=== PATIENT | female | born 1930 | race Caucasian/White ===

== ENCOUNTER 2017-12-06 11:48 | Inpatient (IN) | payer OTHER ==
[~2017-12-06] VITALS: Ht 152.4 cm; Wt 68.7 kg
--- NOTE | 2017-12-06 12:12 | ED GENERAL ADULT ---
History of Present Illness General Chief Complaint: General Adult Stated Complaint: SENT BY DR JADE HENDRICKSONAL OF ANEMIA Source: patient, Dr. Hansen Exam Limitations: no limitations Vital Signs & Intake/Output Vital Signs & Intake/Output Vital Signs Date Time Temp Pulse Resp B/P B/P Pulse O2 O2 Flow FiO2 Mean Ox Delivery Rate 12/06 1645 92 Room Air 12/06 1542 98.0 75 18 141/77 98 Room Air Room Air 12/06 1155 97.9 71 15 133/74 95 Room Air Room Air Allergies Coded Allergies: No Known Allergies (12/06/17) Reconcile Medications Amlodipine Besylate 5 MG TABLET 1 TAB PO QPM HEART (Reported) Atenolol 25 MG TABLET 1 TAB PO DAILY HEART (Reported) Cholecalciferol (Vitamin D3) (Vitamin D-3) 2,000 UNIT CAPSULE 1 CAP PO DAILY VITAMIN SUPPORT (Reported) Losartan Potassium (Cozaar) 50 MG TABLET 1 TAB PO DAILY HEART (Reported) Lovastatin 40 MG TABLET 2 TAB PO DAILY CHOLESTEROL (Reported) with food Potassium Chloride 10 MEQ CAPSULE.ER 1 CAP PO DAILY SUPPLEMENT (Reported) Tramadol HCl 50 MG TABLET 1 TAB PO DAILY NEEDED PRN PAIN (Reported) Triage Note: PT SENT TO ED BY DR. HANSEN FOR WEAKNESS AND R/O ANEMIA. PT APPEARS PALE IN TRIAGE. DENIES BLACK OR BLOODY STOOLS. DENIES ANY PAIN. Triage Nurses Notes Reviewed? yes Onset: Gradual Duration: day(s): Timing: recent history HPI: 86 year old female presents to the Emergency Department for generalized weakness and weight loss. She was sent in by Dr. Hansen for progressive weight loss. He says that she's had some deterioration in her mental status. She is noncompliant and has mild dementia. Past History Travel History Traveled to [place] past 21 day No Medical History Any Pertinent Medical History? 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 No Review of Systems Review of Systems Constitutional: Denies: fever. EENTM: Reports: no symptoms. Respiratory: Denies: short of breath. Cardiovascular: Denies: chest pain. GI: Denies: abdominal pain. Genitourinary: Reports: no symptoms. Musculoskeletal: Reports: no symptoms. Skin: Denies: rash. Neurological/Psychological: Reports: see HPI. Hematologic/Endocrine: Reports: no symptoms. Immunologic/Allergic: Reports: no symptoms. Physical Exam Physical Exam General Appearance: alert, awake, anxious, mild distress Head: atraumatic, normal appearance Eyes: Bilateral: normal appearance, PERRL, EOMI. Ears, Nose, Throat: normal pharynx, normal ENT inspection Neck: normal inspection, supple, full range of motion Respiratory: normal breath sounds, chest non-tender, no respiratory distress Cardiovascular: regular rate/rhythm Peripheral Pulses: 4+ radial (R), 4+ radial (L) Gastrointestinal: soft, non-tender Back: normal range of motion Extremities: pedal edema Neurologic/Psych: no motor/sensory deficits, awake, alert Skin: intact, normal color, warm/dry Core Measures ACS in differential dx? No CVA/TIA Diagnosis: No Sepsis Present: No Sepsis Focused Exam Completed? No Progress Differential Diagnoses I considered the following diagnoses in my evaluation of the patient: [ Malignancy, electrolyte derangement, dehydration, anemia, renal failure] Plan of Care: Orders Procedure Date/time Status CBC WITHOUT DIFFERENTIAL 12/07 0600 Active BASIC ELECTROLYTES PLUS BUN&CR 12/07 0600 Active Heart Healthy Diet 12/06 D Active Weight 12/06 1813 Active Vital Signs 12/06 1813 Active Teach/Educate 12/06 181 Active Pain Treatment and Response 12/06 1813 Active Nutritional Intake, Monitor 12/06 1813 Active Isolation 12/06 1813 Active Intake & Output 12/06 1813 Active Patient Care Conference 12/06 1813 Active Activity/Ambulation 12/06 1813 Active URINALYSIS 12/06 1546 Active Intake & Output 12/06 1542 Active Pathway - chart 12/06 1541 Active Vital Signs 12/06 1541 Complete Patient Data 12/06 1421 Active ED Holding Orders 12/06 1414 Active Admit to inpatient 12/06 1414 Active Vital Signs 12/06 1414 Active Code Status 12/06 1414 Active THYROID STIMULATING HORMONE 12/06 1224 Active TOTAL TRIODOTHYROXINE 12/06 1224 Active THYROXINE 12/06 1224 Active GLYCOSYLATED HGB 12/06 1224 Active TROPONIN LEVEL 12/06 1158 Active PARTIAL THROMBOPLASTIN TIME 12/06 1158 Complete PROTHROMBIN TIME 12/06 1158 Complete COMPREHENSIVE METABOLIC PANEL 12/06 1158 Active CBC WITHOUT DIFFERENTIAL 12/06 1158 Complete EKG 12/06 1158 Active TYPE & SCREEN (NOT X-MATCH) 12/06 1158 Complete House Staff 12/06 UNK Active Lab Add-on Test 12/06 UNK Active MISSING MEDICATION FORM 12/06 UNK Active Current Medications Sig/Zoie Start time Last Medication Dose Stop Time Status Admin Atenolol 25 MG DAILY 12/07 09 AC (Tenormin) Cholecalciferol 2,000 IU DAILY 12/07 09 AC (Vitamin D) Losartan Potassium 50 MG DAILY 12/07 09 AC (Cozaar) Potassium Chloride 10 MEQ DAILY 12/07 09 AC (K-Dur) Heparin Sodium 5,000 UNIT Q8 12/06 2200 AC (Porcine) Amlodipine Besylate 5 MG QPM 12/06 2100 AC (Norvasc) Atorvastatin Calcium 10 MG 1700 12/06 1700 AC 12/06 (Lipitor) 1833 Acetaminophen 650 MG Q6P PRN 12/06 1545 AC (Tylenol) Sodium Chloride 1,000 ML ONCE ONE 12/06 1415 AC 12/06 (Normal Saline 0.9%) 12/064 1658 Laboratory Tests 12/06/17 1224: Anion Gap 23 H, Estimated GFR 22 L, BUN/Creatinine Ratio 15.2, Glucose 89, Hemoglobin A1c Pending, Calcium 9.7, Total Bilirubin 0.7, AST 17, ALT 22, Alkaline Phosphatase 92, Troponin I < 0.01, Total Protein 6.7, Albumin 3.5, Globulin 3.2, Albumin/Globulin Ratio 1.1, TSH 2.690, Thyroxine (T4) 8.0, Total T3 0.64 L, PT 12.2, INR 1.12, APTT 30, CBC w Diff NO MAN DIFF REQ, RBC 4.14 L, MCV 91.5, MCH 30.3, MCHC 33.1, RDW 13.0, MPV 9.3, Gran % 79.5 H, Lymphocytes % 12.6 L, Monocytes % 6.8, Eosinophils % 0.6, Basophils % 0.5, Absolute Granulocytes 6.9 H, Absolute Lymphocytes 1.1 L, Absolute Monocytes 0.6, Absolute Eosinophils 0.1, Absolute Basophils 0 Initial ED EKG: normal sinus rhythm, no ST T wave changes Prior EKG: unchanged Departure Departure Disposition: STILL A PATIENT Condition: Stable Clinical Impression Primary Impression: EPI (acute kidney injury) Referrals: Jade MOORE,Raul Chung (PCP/Family) Departure Forms: Customer Survey General Discharge Information Admission Note Spoke With: Shayla MOORE,Piotr Holder Documentation of Exam: Documentation of any treatments & extenuating circumstances including Concerns Regarding Discharge (functional status, medication knowledge or non-compliance, living conditions, etc.) that warrant an admission rather than observation: [The patient needs admission for acute kidney injury, she'll need IV fluids, follow up the CAT scan, consider nephrology consultation] Critical Care Note Critical Care Note Critical Care Time: non-applicable
[2017-12-06 12:39] LABS: ABSOLUTE BASOPHIL COUNT 0 /CUMM (0.0-0.2); ABSOLUTE EOSINOPHIL COUNT 0.1 /CUMM (0.0-0.7); ABSOLUTE GRANULOCYTE CT 6.9 /CUMM (1.4-6.5); ABSOLUTE LYMPH COUNT 1.1 /CUMM (1.2-3.4); ABSOLUTE MONOCYTE COUNT 0.6 /CUMM (0.10-0.60); BASOPHIL % 0.5 % (0.0-2.0); EOSINOPHIL % 0.6 % (0-5); GRANULOCYTE % 79.5 % (42.2-75.2); HEMATOCRIT 37.9 % (37-47); MEAN CORPUSCULAR HGB 30.3 PG (27.0-31.0); MEAN CORPUSCULAR HGB CONC 33.1 G/DL (33.0-37.0); MEAN CORPUSCULAR VOLUME 91.5 FL (81.0-99.0); MEAN PLATELET VOLUME 9.3 FL (7.4-10.4); PLATELET COUNT 381 /CUMM (130-400); RED BLOOD CELL CT 4.14 /CUMM (4.20-5.40); WHITE BLOOD CELL COUNT 8.7 /CUMM (4.8-10.8)
[2017-12-06] MEDS ORDERED: LOVASTATIN40 M1 PO (12:46)
[2017-12-06] MEDS ORDERED: TRAMADOL HCL50 M1 PO (12:47)
[2017-12-06] MEDS ORDERED: ATENOLOL25 M1 PO (12:47)
[2017-12-06] MEDS ORDERED: VITAMIN D-32000 UNI1 PO (12:48)
[2017-12-06] MEDS ORDERED: COZAAR50 M1 PO (12:49)
[2017-12-06] MEDS ORDERED: POTASSIUM CHLO10 ME3 PO (12:49)
[2017-12-06] MEDS ORDERED: AMLODIPINE BESYL5 M1 PO (12:50)
[2017-12-06 13:04] LABS: PT 12.2 SEC (9.4-12.5); PTT 30 SEC (25-37)
--- NOTE | 2017-12-06 14:25 | History & Physical ---
Naun Kaba 12/06/17 1424: General Information and HPI MD Statement: I have seen and personally examined NAIF BOWERS and documented this H&P. The patient is a 86 year old F who presented with a patient stated chief complaint of [sent by PCP for weight loss]. Source of Information: patient, pcp via phone Exam Limitations: no limitations History of Present Illness: Patient is an 86-year-old female with past medical history of hypertension and hyperlipidemia who presents to the emergency department at the request of her primary care provider. She was referred to the ED for stated weight loss of 21 pounds over the past 3 months. The patient herself has no complaints and no symptoms. Allergies/Medications Allergies: Coded Allergies: No Known Allergies (12/06/17) Home Med list Amlodipine Besylate 5 MG TABLET 1 TAB PO QPM HEART (Reported) Atenolol 25 MG TABLET 1 TAB PO DAILY HEART (Reported) Cholecalciferol (Vitamin D3) (Vitamin D-3) 2,000 UNIT CAPSULE 1 CAP PO DAILY VITAMIN SUPPORT (Reported) Losartan Potassium (Cozaar) 50 MG TABLET 1 TAB PO DAILY HEART (Reported) Lovastatin 40 MG TABLET 2 TAB PO DAILY CHOLESTEROL (Reported) with food Potassium Chloride 10 MEQ CAPSULE.ER 1 CAP PO DAILY SUPPLEMENT (Reported) Tramadol HCl 50 MG TABLET 1 TAB PO DAILY NEEDED PRN PAIN (Reported) Compliance With Home Meds: UNKNOWN (presumed good) Past History Travel History Traveled to [place] past 21 day No Medical History Neurological: NONE EENT: NONE Cardiovascular: hypertension, hyperlipidemia Respiratory: NONE Gastrointestinal: NONE Hepatic: NONE Renal: NONE Musculoskeletal: NONE Psychiatric: NONE Endocrine: NONE Blood Disorders: NONE Cancer(s): NONE 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 Ambulation: independent IADLs Independent: shopping, housework, finances, food prep, telephone, transportation. Needs Assist: medication admin. 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 EENTM: Reports: no symptoms. Cardiovascular: Reports: no symptoms. Respiratory: Reports: no symptoms. GI: Reports: no symptoms. Genitourinary: Reports: no symptoms. Musculoskeletal: Reports: no symptoms. Skin: Reports: no symptoms. Neurological/Psychological: Reports: no symptoms. Hematologic/Endocrine: Reports: no symptoms. Exam & Diagnostic Data Last 24 Hrs of Vital Signs/I&O Vital Signs Date Time Temp Pulse Resp B/P B/P Pulse O2 O2 Flow FiO2 Mean Ox Delivery Rate 12/06 2321 98.3 64 19 150/60 95 12/06 2137 62 18 128/56 12/06 2135 62 18 128/56 12/06 1645 97.7 68 20 124/64 92 Room Air 12/06 1645 92 Room Air 12/06 1542 98.0 75 18 141/77 98 Room Air Room Air 12/06 1155 97.9 71 15 133/74 95 Room Air Room Air Intake & Output 12/07 0800 12/07 0000 12/06 1600 Intake Total 990 1000 Output Total 400 Balance 590 1000 Intake, IV 450 1000 Intake, Oral 540 Output, Urine 400 Patient 146 lb 155 lb Weight Weight Bed scale Estimated Measurement Method Physical Exam General Appearance Alert, Oriented X3, Cooperative, No Acute Distress Skin No Rashes, No Breakdown Skin Temp/Moisture Exam: Warm/Dry HEENT Atraumatic, PERRLA, EOMI, Mucous Membr. moist/pink Neck Supple, No JVD, No thryomegaly Lymphatic Cervical nl Cardiovascular Regular Rate, Normal S1, Normal S2, No Murmurs Lungs decreased air movement.no wheezes or crackles Abdomen Soft, No Tenderness, No Hepatospenomegaly Neurological Normal Speech, Strength at 5/5 X4 Ext, Normal Tone, Sensation Intact Extremities No Clubbing, No Cyanosis, No Edema, toenails in need of podiatry consult Vascular Normal Pulses, Pulses Symmetrical Last 24 Hrs of Labs/Bret: Laboratory Tests 12/06/172211: Urine Color YEL, Urine Clarity CLEAR, Urine pH 6.0, Ur Specific [place] 1.020, Urine Protein TRACE H, Urine Ketones 15 H, Urine Nitrite POS H, Urine Bilirubin NEG, Urine Urobilinogen 0.2, Ur Leukocyte Esterase SMALL H, Ur Microscopic SEDIMENT EXAMINED, Urine RBC 1-3, Urine WBC 10-15 H, Ur Epithelial Cells MANY H, Urine Bacteria PACKD H, Urine Hemoglobin TRACE-INTACT, Urine Glucose NEG 12/06/17 1224: Anion Gap 23 H, Estimated GFR 22 L, BUN/Creatinine Ratio 15.2, Glucose 89, Hemoglobin A1c Pending, Calcium 9.7, Total Bilirubin 0.7, AST 17, ALT 22, Alkaline Phosphatase 92, Troponin I < 0.01, Total Protein 6.7, Albumin 3.5, Globulin 3.2, Albumin/Globulin Ratio 1.1, TSH 2.690, Thyroxine (T4) 8.0, Total T3 0.64 L, PT 12.2, INR 1.12, APTT 30, CBC w Diff NO MAN DIFF REQ, RBC 4.14 L, MCV 91.5, MCH 30.3, MCHC 33.1, RDW 13.0, MPV 9.3, Gran % 79.5 H, Lymphocytes % 12.6 L, Monocytes % 6.8, Eosinophils % 0.6, Basophils % 0.5, Absolute Granulocytes 6.9 H, Absolute Lymphocytes 1.1 L, Absolute Monocytes 0.6, Absolute Eosinophils 0.1, Absolute Basophils 0 Diagnostic Data EKG Results Sinus rhythm, probably L atrial and ventricular abbnormalities Other Results SERVICE DATE: 12/06/17 EXAM TYPE: CAT - CT ABD & PELVIS W/O IV CONTRAS; CT CHEST WO IV CONTRAST IMPRESSION: Irregular opacity lateral segment right middle lobe subjacent to the right mastectomy is nonspecific but compatible with post radiation scarring. Correlate clinically. Pneumonia difficult to exclude without suitable comparison. Amorphous groundglass disease in the subpleural left upper lobe is consistent with a focal pneumonia. Recommend follow-up chest CT in 6-8 weeks after medical therapy to confirm resolution. No hydronephrosis. Cholelithiasis without evidence of cholecystitis. Moderate hiatal hernia. SERVICE DATE: 12/06/17 EXAM TYPE: CAT - CT HEAD WO IV CONTRAST IMPRESSION: No acute intracranial hemorrhage or territorial infarction. Moderate to severe diffuse parenchymal volume loss. Assessment/Plan Assessment: 86-year-old female with past medical history of HTN, HLD, status post left mastectomy remotely however unknown of surgical type/chemo/radiation. Patient was sent in by Dr. Nuno for eval of anemia and weight loss. Patient had no specific complaints and states she was in her usual state of health has been compliant with all her meds and on a regular [address] Borden. At baseline she does not have any exercise intolerance and ambulates freely she also only sees Dr. Borden and no other physicians. Per Dr. Borden patient loss 21 pounds in 3 months. 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 Weight loss 2. EPI (acute kidney injury) Core Measures/Misc (02/03) Acute Coronary Syndrome ACS Diagnosis: No Congestive Heart Failure Congestive Heart Failure Diagnosis No Cerebrovascular Accident CVA/TIA Diagnosis: No VTE (View Protocol) VTE Risk Factors Age>40 No Mechanical VTE Prophylaxis d/t N/A MechProphylax Ordered No VTE Pharm Prophylaxis d/t NA PharmProphylax ordered Sepsis (View protocol) Sepsis Present: No If YES complete Sepsis Event Note If YES complete Sepsis Event Note Nasrin Mcguire 12/06/17 1511: Core Measures/Misc (02/03) Sepsis (View protocol) If YES complete Sepsis Event Note If YES complete Sepsis Event Note Attending MD Review Statement Attending Statement Attending MD Statement: examined this patient, discuss w/resident/PA/YOUTH PROGRAM DIRECTOR, agreed w/resident/PA/YOUTH PROGRAM DIRECTOR, discussed with family, reviewed EMR data (avail), discussed with nursing, discussed with case mgmt, reviewed images, amended to note Attending Assessment/Plan: 86 o/f with PMH as above comes with generlaised weakness and weight loss. Pateint PCP is Dr Faith. Patient underwent [place] CT chest/abd/pelvis along with CT head. Imaging suggestive of FARHAN nodule amorphous ground glass appaearance. Pateint creatinine is found to be elevated. Patient is being admitted for EPI on CKD with metabolic acidosis and high anion gap from dehydration needing IVF. Check lactic acid levels. Patient with weight loss and abnomral CT chest with FARHAN nodule will benefit from pulmonary consult. Monitor creatinine tomorrow. RISS and titrate insulin as needed. Resume home meds. GI/DVT prophylaxis full code. Plan of care discussed with patient bedside in ER. Suma Quiñones 12/06/17 1547: Core Measures/Misc (02/03) Sepsis (View protocol) If YES complete Sepsis Event Note If YES complete Sepsis Event Note Resident Review Statement Resident Statement: examined this patient, discussed with music intern, agreed with music intern, discussed with family, reviewed EMR data (avail), discussed with nursing , discussed with case mgmt, reviewed images, amended to note Other Findings: Ms. Bowers is an 86yo F w/ PMH of HTN, HLD, s/p left masectomy remotely likely 2007 however unknown of surgical type/chemo/radiation, sent in by Dr. Faith for eval of anemia and weight loss. Patient had no specific complaint and stated she was in her usual state of health and has been compliant with all her meds and on a regular [id number] visit to Dr. Faith. At baseline she did not have any exercise intolerance and ambulates freely. She also only sees Dr. Faith. Per Dr. Faith, patient lost 21lbs in 3 months. During our clinical interaction, patient denied recent travel/sick contacts, fever/lightheadedness/diaphoresis/night sweat/weight change/cough/SOB/Chest Pain /Palpitation/Abdominal pain/bowel movement or urinary abnormality, or other skin /musculoskeletal/neurological/mood disorders, or dietary/appetite change. -Smoking: former smoker quitted >20 yrs -Alcohol: rare -Rec Drugs: denied On admission, Vitals: Stable afebrile, BP 150/74, 95% RA Physical exam -Gen.: AO x3, cooperative, no distress, -HEENT: NCAT, PERRL, EOMI, anicteric sclera, moist mucous membranes -Neck: Supple, no JVD, trachea midline, mild accessory respiratory muscle use -Cardio: Normal S1/S2 without significant murmurs/gallops/rubs -Chest: s/p left masectomy without any palpable lymph nodes in bilateral armpits -Pulmonary: grossly normal air movement w/ clear auscultation -Abdomen: Soft, nontender, nondistended, bowel sounds intact, hiatal hernia palpable -Neuro: Awake and alert, cranial nerves II through XII grossly intact -Extremity: Normal pulses/capillary refill, no cyanosis/clubbing/edema -CBC: Unremarkable -BMP: Elevated creatinine 2.1, no previous baseline in our system -Head/Chest/Ab CT No acute intracranial hemorrhage or territorial infarction. Moderate to severe diffuse parenchymal volume loss. Irregular opacity lateral segment right middle lobe subjacent to the right mastectomy is nonspecific but compatible with post radiation scarring. Correlate clinically. Pneumonia difficult to exclude without suitable comparison. Amorphous groundglass disease in the subpleural left upper lobe is consistent with a focal pneumonia. Recommend follow-up chest CT in 6-8 weeks after medical therapy to confirm resolution. No hydronephrosis. Cholelithiasis without evidence of cholecystitis. Moderate hiatal hernia. -EKG: NSR w/o significant ST-T abnormalities. 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 - Vitals per protocol, monitor I&O per protocol. - Continue IVF bolus x 1 + 150cc/hr - Continue home meds - would monitor off Abx at this point due to no signs of infection (no fever/ chills/WBC/toxic symptoms/cough/congestion). - obtain records from Dr. Faith' office if any. - Pending pulm consult for abnormal findings on Chest CT. - Pending blood culture. - Pending urinalysis. - Pain per pathway. DVT prophylaxis heparin SC + ALPS Heart Healthy Diet IV Access: Peripheral IV Full Code
--- NOTE | 2017-12-06 14:36 | CT SCAN REPORT ---
EXAMINATION: CT HEAD WITHOUT CONTRAST CLINICAL INFORMATION: Altered mental status. COMPARISON: None TECHNIQUE: Contiguous axial imaging was performed from the skull base to vertex without intravenous administration of contrast. DLP: 592.4 mGy-cm FINDINGS: There is no evidence of acute intracranial hemorrhage or territorial infarction. No abnormal mass effect or midline shift is seen. Cordon to white matter differentiation is well preserved. No extra-axial fluid collections are identified. There is moderate to severe diffuse parenchymal volume loss. The ventricles are normal in size. There is no abnormal attenuation within the brain parenchyma. The osseous structures and soft tissues are normal. The mastoid air cells and visualized portions of the paranasal sinuses are well aerated. IMPRESSION: No acute intracranial hemorrhage or territorial infarction. Moderate to severe diffuse parenchymal volume loss.
--- NOTE | 2017-12-06 14:48 | CT SCAN REPORT ---
EXAMINATION: CT CHEST, ABDOMEN AND PELVIS WITHOUT CONTRAST CLINICAL INFORMATION: Altered mental status, weight loss, acute kidney injury. COMPARISON: Chest x-ray 08/30/2011. TECHNIQUE: Multidetector volumetric CT imaging of the chest, abdomen, and pelvis was performed without contrast. Axial MIP volume rendering provided. Sagittal and coronal reformatted images were obtained. DLP: 336 mGy-cm. FINDINGS: CHEST: LUNGS: Triangular opacity in the lateral segment of the right middle lobe subjacent to the right mastectomy nonspecific but compatible with post radiation scarring. Similar, smaller opacity is seen in the right lateral costophrenic sulcus. Amorphous groundglass disease in the subpleural left upper lobe may represent focal pneumonia. Follow-up recommended. MEDIASTINUM: The mediastinum is unremarkable. PLEURA: Trace left pleural effusion. AXILLA: Right mastectomy with breast prosthesis. No axillary adenopathy. ABDOMEN AND PELVIS: LIVER, GALLBLADDER, AND BILIARY TREE: The liver is normal in size, shape, and attenuation. No focal hepatic lesion or biliary ductal dilatation is present. Large lamellated gallstone measuring 2.9 cm. No evidence of cholecystitis. PANCREAS: Fatty atrophy. No ductal dilatation SPLEEN: Unremarkable. ADRENAL GLANDS: Unremarkable. KIDNEYS AND URETERS: 2.8 cm simple density cyst lower pole right kidney. Malrotated left kidney. 1.2 cm simple density cyst lower pole left kidney. No hydroureteronephrosis. No nephrolithiasis. BLADDER: Unremarkable. GASTROINTESTINAL TRACT: Moderate-sized hiatal hernia. Small bowel normal in caliber. A few scattered colonic diverticula. No evidence of diverticulitis or bowel obstruction. ABDOMINAL WALL: Small fat-containing indirect right inguinal hernia. Small fat-containing, probable direct left inguinal hernia. LYMPH NODES: No measurable adenopathy. VASCULAR: Tortuous and calcified abdominal aorta. No aneurysm. PELVIC VISCERA: The uterus is been removed. No pelvic mass. OSSEOUS STRUCTURES: Scoliosis with grade 2 anterolisthesis of L4 on L5 with severe associated degenerative changes. Severe degenerative changes L1-L2 and L5-S1. IMPRESSION: Irregular opacity lateral segment right middle lobe subjacent to the right mastectomy is nonspecific but compatible with post radiation scarring. Correlate clinically. Pneumonia difficult to exclude without suitable comparison. Amorphous groundglass disease in the subpleural left upper lobe is consistent with a focal pneumonia. Recommend follow-up chest CT in 6-8 weeks after medical therapy to confirm resolution. No hydronephrosis. Cholelithiasis without evidence of cholecystitis. Moderate hiatal hernia.
[2017-12-06 16:45] VITALS: BP 124/64
[2017-12-06 21:35] VITALS: BP 128/56
[2017-12-06 23:21] VITALS: BP 150/60
[2017-12-07 06:29] VITALS: BP 132/58
[2017-12-07 08:35] LABS: ABSOLUTE BASOPHIL COUNT 0 /CUMM (0.0-0.2); ABSOLUTE EOSINOPHIL COUNT 0.1 /CUMM (0.0-0.7); ABSOLUTE GRANULOCYTE CT 4.8 /CUMM (1.4-6.5); ABSOLUTE LYMPH COUNT 1.7 /CUMM (1.2-3.4); ABSOLUTE MONOCYTE COUNT 0.4 /CUMM (0.10-0.60); BASOPHIL % 0.6 % (0.0-2.0); EOSINOPHIL % 1.7 % (0-5); GRANULOCYTE % 67.2 % (42.2-75.2); MEAN CORPUSCULAR HGB 30.1 PG (27.0-31.0); MEAN CORPUSCULAR HGB CONC 33.3 G/DL (33.0-37.0); MEAN CORPUSCULAR VOLUME 90.4 FL (81.0-99.0); MEAN PLATELET VOLUME 11.5 FL (7.4-10.4); PLATELET COUNT 315 /CUMM (130-400); RBC DISTRIBUTION WIDTH 12.7 % (11.5-14.5); WHITE BLOOD CELL COUNT 7.1 /CUMM (4.8-10.8)
[2017-12-07 09:11] LABS: HEMATOCRIT 31.7 % (37-47)
--- NOTE | 2017-12-07 09:43 | PN- Housestaff ---
See Addendum Subjective Follow-up For: By PCP for weight loss Complaints: no complaints Subjective: She seen and examined at the bedside. Patient claims she was able to sleep well last night, but still concerned about being able to leave here as soon as possible. When told that we spoke with her son she did not seem upset. Verbalized understanding of the plan to correct her kidney function. No other complete Review of Systems Constitutional: Reports: no symptoms. Objective Last 24 Hrs of Vital Signs/I&O Vital Signs Date Time Temp Pulse Resp B/P B/P Pulse O2 O2 Flow FiO2 Mean Ox Delivery Rate 12/07 0808 60 132/58 12/07 0808 60 132/58 12/07 0629 98.3 60 20 132/58 92 12/06 2321 98.3 64 19 150/60 95 12/06 2137 62 18 128/56 12/06 2135 62 18 128/56 12/06 1645 97.7 68 20 124/64 92 Room Air 12/06 1645 92 Room Air 12/06 1542 98.0 75 18 141/77 98 Room Air Room Air 12/06 1155 97.9 71 15 133/74 95 Room Air Room Air Intake & Output 12/07 1600 12/07 0800 12/07 0000 Intake Total 120 990 Output Total 250 400 Balance -250 120 590 Intake, IV 450 Intake, Oral 120 540 Number 1 Bowel Movements Output, Urine 250 400 Patient 152 lb 146 lb Weight Weight Bed scale Bed scale Measurement Method Physical Exam General Appearance: Alert, Oriented X3, Cooperative, No Acute Distress Skin: No Rashes, No Breakdown Skin Temp/Moisture Exam: Warm/Dry HEENT: Atraumatic, PERRLA, EOMI, Mucous Membr. moist/pink Neck: Supple, No JVD, No thryomegaly Lymphatic: Axillary nl, Cervical nl Cardiovascular: Regular Rate, Normal S1, Normal S2, No Murmurs Lungs: Clear to Auscultation, Normal Air Movement Abdomen: Normal Bowel Sounds, Soft, No Tenderness, No Hepatospenomegaly Neurological: Normal Speech, Strength at 5/5 X4 Ext, Normal Tone, Sensation Intact Extremities: No Clubbing, No Cyanosis, No Edema Vascular: Normal Pulses, Pulses Symmetrical Current Medications: Current Medications Sig/Zoie Start time Last Medication Dose Route Stop Time Status Admin Acetaminophen 650 MG Q6P PRN 12/06 1545 AC PO Amlodipine Besylate 5 MG QPM 12/06 2100 AC 12/06 PO 2137 Atenolol 25 MG DAILY 12/07 0900 AC 12/07 PO 0808 Atorvastatin Calcium 10 MG 1700 12/06 1700 AC 12/06 PO 1833 Cholecalciferol 2,000 IU DAILY 12/07 0900 AC 12/07 PO 0808 Heparin Sodium 5,000 UNIT Q8 12/06 2200 AC 12/07 (Porcine) SC 0526 Losartan Potassium 50 MG DAILY 12/07 0900 AC 12/07 PO 0808 Nystatin 1 DONITA BID 12/06 2100 AC 12/07 TOP 0808 Potassium Chloride 10 MEQ DAILY 12/07 0900 AC 12/07 PO 0807 Sodium Chloride 1,000 ML ONCE ONE 12/06 1415 DC 12/06 IV 12/06 2054 1658 Sodium Chloride 1,000 ML BOLUS ONE 12/06 1400 DC 12/06 IV 12/06 1559 1424 Last 24 Hrs of Lab/Bret Results Last 24 Hrs of Labs/Mics: Laboratory Tests 12/07/17 0640: Anion Gap 18 H, Estimated GFR 33 L, BUN/Creatinine Ratio 20.0, CBC w Diff NO MAN DIFF REQ, RBC 3.50 L, MCV 90.4, MCH 30.1, MCHC 33.3, RDW 12.7, MPV 11.5 H, Gran % 67.2, Lymphocytes % 24.2, Monocytes % 6.3, Eosinophils % 1.7, Basophils % 0.6, Absolute Granulocytes 4.8, Absolute Lymphocytes 1.7, Absolute Monocytes 0.4 , Absolute Eosinophils 0.1, Absolute Basophils 0 12/06/17 2212: Urine Color YEL, Urine Clarity CLEAR, Urine pH 6.0, Ur Specific [place] 1.020, Urine Protein TRACE H, Urine Ketones 15 H, Urine Nitrite POS H, Urine Bilirubin NEG, Urine Urobilinogen 0.2, Ur Leukocyte Esterase SMALL H, Ur Microscopic SEDIMENT EXAMINED, Urine RBC 1-3, Urine WBC 10-15 H, Ur Epithelial Cells MANY H, Urine Bacteria PACKD H, Urine Hemoglobin TRACE-INTACT, Urine Glucose NEG 12/06/17 1224: Anion Gap 23 H, Estimated GFR 22 L, BUN/Creatinine Ratio 15.2, Glucose 89, Hemoglobin A1c Pending, Calcium 9.7, Total Bilirubin 0.7, AST 17, ALT 22, Alkaline Phosphatase 92, Troponin I < 0.01, Total Protein 6.7, Albumin 3.5, Globulin 3.2, Albumin/Globulin Ratio 1.1, TSH 2.690, Thyroxine (T4) 8.0, Total T3 0.64 L, PT 12.2, INR 1.12, APTT 30, CBC w Diff NO MAN DIFF REQ, RBC 4.14 L, MCV 91.5, MCH 30.3, MCHC 33.1, RDW 13.0, MPV 9.3, Gran % 79.5 H, Lymphocytes % 12.6 L, Monocytes % 6.8, Eosinophils % 0.6, Basophils % 0.5, Absolute Granulocytes 6.9 H, Absolute Lymphocytes 1.1 L, Absolute Monocytes 0.6, Absolute Eosinophils 0.1, Absolute Basophils 0 Orders EKG Findings: This rhythm, probably left atrial and ventricular abnormality Radiology Findings: SERVICE DATE: 12/06/17 EXAM TYPE: CAT - CT ABD & PELVIS W/O IV CONTRAS; CT CHEST WO IV CONTRAST IMPRESSION: Irregular opacity lateral segment right middle lobe subjacent to the right mastectomy is nonspecific but compatible with post radiation scarring. Correlate clinically. Pneumonia difficult to exclude without suitable comparison. Amorphous groundglass disease in the subpleural left upper lobe is consistent with a focal pneumonia. Recommend follow-up chest CT in 6-8 weeks after medical therapy to confirm resolution. No hydronephrosis. Cholelithiasis without evidence of cholecystitis. Moderate hiatal hernia. SERVICE DATE: 12/06/17 EXAM TYPE: CAT - CT HEAD WO IV CONTRAST IMPRESSION: No acute intracranial hemorrhage or territorial infarction. Moderate to severe diffuse parenchymal volume loss. Assessment/Plan Assessment: 86-year-old female with past medical history of HTN, HLD, status post left mastectomy remotely however unknown of surgical type/chemo/radiation. Patient was sent in by Dr. Nuno for eval of anemia and weight loss. Patient had no specific complaints and states she was in her usual state of health has been compliant with all her meds and on a regular [address] Borden. At baseline she does not have any exercise intolerance and ambulates freely she also only sees Dr. Borden and no other physicians. Per Dr. Borden patient loss 21 pounds in 3 months. 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 DVT prophylaxis: Subcu heparin + ALPS Heart healthy diet Patient is full code Problem List: 1. Weight loss 2. EPI (acute kidney injury) Pain Ratin Pain Location: none Pain Goal: Remain pain free Pain Plan: none Tomorrow's Labs & Rationales: none planned at this time
--- NOTE | 2017-12-07 09:46 | Patient Discharge Instructions ---
Discharge Instructions General Discharge Information Special Instructions: - Please follow up with your lung specialist Dr. Howell for further evaluation of your new chest x-ray findings. - Please follow up with your primary care physician within 1-2 weeks of discharge. Inform your primary care physician of this admission to [facility]. - Continue your current medications per discharge instructions. - Please watch for these problems: Fever, Chills, Nausea, Vomiting, Shortness of Breath, Productive Cough, Chest Pain/Discomfort, Abdominal Pain, Active Bleeding or Bloody urine/stool. Diet Continue normal diet: Yes Activity Full Activity/No Limits: Yes Acute Coronary Syndrome Inclusion Criteria At DC or during hospital stay patient has or had the following: ACS DIAGNOSIS No Discharge Core Measures Meds if any: Prescribed or Continued at Discharge Meds if any: NOT Prescribed or Continued at Discharge Congestive Heart Failure Inclusion Criteria At DC or during hospital stay patient has or had the following: CHF DIAGNOSIS No Discharge Core Measures Meds if any: Prescribed or Continued at Discharge Meds if any: NOT Prescribed or Continued at Discharge Cerebrovascular accident Inclusion Criteria At DC or during hospital stay patient has or had the following: CVA/TIA Diagnosis No Discharge Core Measures Meds if any: Prescribed or Continued at Discharge Meds if any: NOT Prescribed or Continued at Discharge Venous thromboembolism Inclusion Criteria VTE Diagnosis No VTE Type NONE VTE Confirmed by (Test) NONE Discharge Core Measures - Per Current guidelines, there needs to be overlap - treatment for the first 5 days of Warfarin therapy. - If discharged on Warfarin prior to 5 days of - overlap therapy, the patient will need to be - assessed for post discharge needs including - *Post discharge parental anticoagulation - *Warfarin and/or parental anticoagulation education - *Follow up date to check INR post discharge At least 5 days overlap therapy as Inpatient No Meds if any: Prescribed or Continued at Discharge Note: Overlap Therapy is Warfarin and Anticoagulant Meds if any: NOT Prescribed or Continued at Discharge
--- NOTE | 2017-12-07 11:53 | Cons- Pulmonary ---
General Information and HPI Consulting Request Date of Consult: 12/07/17 Requested By: med team History of Present Illness: Patient is an 86-year-old female with past medical history of hypertension and hyperlipidemia who presents to the emergency department at the request of her primary care provider. She was referred to the ED for stated weight loss of 21 pounds over the past 3 months. The patient herself has no complaints and no symptoms. Since admission ct chest showed abnormality and hence this consult She does not have any cough or sputum No significant GERD She has had remote history of smoking quit about 15 years ago about [id number] smoker No birds no humidifiers at home Allergies/Medications Allergies: Coded Allergies: No Known Allergies (12/06/17) Home Med List: Amlodipine Besylate 5 MG TABLET 1 TAB PO QPM HEART (Reported) Atenolol 25 MG TABLET 1 TAB PO DAILY HEART (Reported) Cholecalciferol (Vitamin D3) (Vitamin D-3) 2,000 UNIT CAPSULE 1 CAP PO DAILY VITAMIN SUPPORT (Reported) Losartan Potassium (Cozaar) 50 MG TABLET 1 TAB PO DAILY HEART (Reported) Lovastatin 40 MG TABLET 2 TAB PO DAILY CHOLESTEROL (Reported) with food Potassium Chloride 10 MEQ CAPSULE.ER 1 CAP PO DAILY SUPPLEMENT (Reported) Tramadol HCl 50 MG TABLET 1 TAB PO DAILY NEEDED PRN PAIN (Reported) Review of Systems Comments Constitutional: Reports: no symptoms, unexplained weight loss (reported by pcp). EENTM: Reports: no symptoms. Cardiovascular: Reports: no symptoms. Respiratory: Reports: no symptoms. GI: Reports: no symptoms. Genitourinary: Reports: no symptoms. Musculoskeletal: Reports: no symptoms. Skin: Reports: no symptoms. Neurological/Psychological: Reports: no symptoms. Hematologic/Endocrine: Reports: no symptoms. 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 Ambulation: independent IADLs Independent: shopping, housework, finances, food prep, telephone, transportation. Needs Assist: medication admin. 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 Exam & Diagnostic Data Last 24 Hrs of Vital Signs/I&O Vital Signs Date Time Temp Pulse Resp B/P B/P Pulse O2 O2 Flow FiO2 Mean Ox Delivery Rate 12/07 0808 60 132/58 12/07 0808 60 132/58 12/07 0629 98.3 60 20 132/58 92 12/06 2321 98.3 64 19 150/60 95 12/06 2137 62 18 128/56 12/06 2135 62 18 128/56 12/06 1645 97.7 68 20 124/64 92 Room Air 12/06 1645 92 Room Air 12/06 1542 98.0 75 18 141/77 98 Room Air Room Air 12/06 1155 97.9 71 15 133/74 95 Room Air Room Air Intake & Output 12/07 1600 12/07 0800 12/07 0000 Intake Total 120 990 Output Total 250 400 Balance -250 120 590 Intake, IV 450 Intake, Oral 120 540 Number 1 Bowel Movements Output, Urine 250 400 Patient 152 lb 146 lb Weight Weight Bed scale Bed scale Measurement Method Last 48 Hrs of Labs/Bret: Laboratory Tests 12/07/17 0640: Anion Gap 18 H, Estimated GFR 33 L, BUN/Creatinine Ratio 20.0, CBC w Diff NO MAN DIFF REQ, RBC 3.50 L, MCV 90.4, MCH 30.1, MCHC 33.3, RDW 12.7, MPV 11.5 H, Gran % 67.2, Lymphocytes % 24.2, Monocytes % 6.3, Eosinophils % 1.7, Basophils % 0.6, Absolute Granulocytes 4.8, Absolute Lymphocytes 1.7, Absolute Monocytes 0.4 , Absolute Eosinophils 0.1, Absolute Basophils 0 12/06/17 2212: Urine Color YEL, Urine Clarity CLEAR, Urine pH 6.0, Ur Specific [place] 1.020, Urine Protein TRACE H, Urine Ketones 15 H, Urine Nitrite POS H, Urine Bilirubin NEG, Urine Urobilinogen 0.2, Ur Leukocyte Esterase SMALL H, Ur Microscopic SEDIMENT EXAMINED, Urine RBC 1-3, Urine WBC 10-15 H, Ur Epithelial Cells MANY H, Urine Bacteria PACKD H, Urine Hemoglobin TRACE-INTACT, Urine Glucose NEG 12/06/17 1224: Anion Gap 23 H, Estimated GFR 22 L, BUN/Creatinine Ratio 15.2, Glucose 89, Hemoglobin A1c Pending, Calcium 9.7, Total Bilirubin 0.7, AST 17, ALT 22, Alkaline Phosphatase 92, Troponin I < 0.01, Total Protein 6.7, Albumin 3.5, Globulin 3.2, Albumin/Globulin Ratio 1.1, TSH 2.690, Thyroxine (T4) 8.0, Total T3 0.64 L, PT 12.2, INR 1.12, APTT 30, CBC w Diff NO MAN DIFF REQ, RBC 4.14 L, MCV 91.5, MCH 30.3, MCHC 33.1, RDW 13.0, MPV 9.3, Gran % 79.5 H, Lymphocytes % 12.6 L, Monocytes % 6.8, Eosinophils % 0.6, Basophils % 0.5, Absolute Granulocytes 6.9 H, Absolute Lymphocytes 1.1 L, Absolute Monocytes 0.6, Absolute Eosinophils 0.1, Absolute Basophils 0 Assessment/Plan Impression/Plan: CT scan of the head IMPRESSION: No acute intracranial hemorrhage or territorial infarction. Moderate to severe diffuse parenchymal volume loss. DICTATED BY: Kasi Cooley MD DATE/TIME DICTATED:12/06/171430 CT scan of the chest and abdomen IMPRESSION: Irregular opacity lateral segment right middle lobe subjacent to the right mastectomy is nonspecific but compatible with post radiation scarring. Correlate clinically. Pneumonia difficult to exclude without suitable comparison. Amorphous groundglass disease in the subpleural left upper lobe is consistent with a focal pneumonia. Recommend follow-up chest CT in 6-8 weeks after medical therapy to confirm resolution. No hydronephrosis. Cholelithiasis without evidence of cholecystitis. Moderate hiatal hernia. DICTATED BY: Ankur Martin MD DATE/TIME DICTATED:12/06/171434 IMPRESSION THIS is a lady with history of hypertension hyperlipidemia, remote history of breast cancer with mastectomy on the right with previous history of radiation and chemotherapy in the remote past, hypertension, hyperlipidemia, recent weight loss (patient is partially due to diet) came in with fatigue weight loss. She does have mild chronic kidney disease with acute kidney injury and she is now been resuscitated. She also did have elevated anion gap which is improving. No clinical evidence suggestive of sepsis. Her issues include * Left subpleural upper lobe opacity probably sequelae of pneumonitis. Patient does have hiatal hernia and she may have had GERD. No clinical evidence suggestive of active bacterial or fungal or viral pneumonitis. This needs serial follow-up with a CAT scan in the next few months * Postradiation change in the right middle lobe from previous right mastectomy and previous radiation appears relatively benign * Mild acute kidney injury probably due to poor p.o. intake now back to her baseline * Chronic anemia with no evidence of significant active bleeding so far * Osteoporosis * Other issues include hypertension, vitamin D deficiency, on and off chronic pain. RECOMMENDATION Continue current therapy Keep the head of bed elevated Start Pepcid daily, lifestyle modification for hiatal hernia treatment. Patient should not go to bed for 3 hours after she eats supper. She should keep her head of bed elevated at night. Check lactic acid and salicylic acid level Patient appears relatively stable with significant improvement of her anion gap acidosis may been related to her renal insufficiency. Will follow as outpatient. Patient was given my phone number. Please make sure upon discharge she should have a follow-up appt with me Consult Acknowledgment - Thank you for your consult request.
[2017-12-07 14:29] VITALS: BP 143/70
[2017-12-07 21:37] VITALS: BP 138/64
[2017-12-08 06:21] VITALS: BP 140/72
--- NOTE | 2017-12-08 07:24 | Event Note ---
Event Note Event Note: I was called in by the nurse in order to evaluate this woman for increasingly worsening agiatation and altered mental status. This is an 86 yo F was brought in to the ED for progressive unintentional weight loss and weakness. I went in and assessed the patient twice. She was agitated, disoriented and confused, in altered mental status mistaking the hospital for her house. The nurses reported she had just got out of her bed and running about in the hallway. After discussion with the resident, , we ordered Zyprexa 2.5 mg for her. This did not seem to help, so we ordered a steph for her which made her even more agitated. After, further discussion, we decided to order a nert bed for her.
--- NOTE | 2017-12-08 11:29 | PN- Housestaff ---
Abhishek Cavazos 12/08/17 1129: Subjective Follow-up For: UTI, Delirium, EPI Subjective: Overnight, patient became disoriented, delirious, talked about friends and families in the 60s and 70s is going to the movies, Getting out of her bed, ripped out IVs. Patient was given Zyprexa, which did not calm her down, and eventually was placed into neck bed as she kept trying to get out of bed and was unsafe to do so. Patient was interviewed today, later in the afternoon, and at bed. Patient was alert and oriented to person only, would wax and wane with orientation and conversation. Patient did deny any abdominal or urinary symptoms, however has been complaining of throat pain which she has been taking pills for for the past week according to patient. Patient also asked about 3 times, and when she will meet her friend Brooke who per her son has been for several years. No fevers overnight, patient denies chest pain/abdominal pain/ urinary symptoms/lower extremity edema. Review of Systems Constitutional: Reports: see HPI. Objective Last 24 Hrs of Vital Signs/I&O Vital Signs Date Time Temp Pulse Resp B/P B/P Pulse O2 O2 Flow FiO2 Mean Ox Delivery Rate 12/08 1502 98.4 60 20 150/69 96 Room Air 12/08 0835 80 140/72 12/08 0835 80 140/72 12/08 0621 98.1 80 20 140/72 95 / 2137 98.5 69 20 138/64 94 Room Air 12/07 2126 138/64 Intake & Output 12/08 1600 12/08 0800 12/08 0000 Intake Total 450 240 720 Output Total 350 Balance 100 240 720 Intake, Oral 450 240 720 Number 1 Bowel Movements Output, Urine 350 Physical Exam General Appearance: Alert, No Acute Distress Skin: No Rashes Cardiovascular: Regular Rate, Normal S1, Normal S2 Lungs: Clear to Auscultation, Normal Air Movement Abdomen: Soft, No Tenderness Neurological: Sensation Intact Extremities: No Edema, poor grooming of toenails - curling onto themselves Current Medications: Current Medications Sig/Zoie Start time Last Medication Dose Route Stop Time Status Admin Acetaminophen 650 MG .STK-MED ONE 12/08 0644 DC PO 12/08 0645 Acetaminophen 650 MG Q6P PRN 12/06 1545 AC 12/08 PO 1339 Amlodipine Besylate 5 MG QPM 12/06 2100 AC 12/07 PO 2126 Amoxicillin/ 500 MG Q12 12/08 1433 AC Clavulanate Potassium PO Atenolol 25 MG DAILY 12/07 0900 AC 12/08 PO 0835 Atorvastatin Calcium 10 MG 1700 12/06 1700 AC 12/07 PO 1750 Cholecalciferol 2,000 IU DAILY 12/07 0900 AC 12/08 PO 0835 Famotidine 20 MG DAILY 12/07 1621 AC 12/08 PO 0835 Heparin Sodium 5,000 UNIT Q8 12/06 2200 AC 12/08 (Porcine) SC 1338 Losartan Potassium 50 MG DAILY 12/07 0900 AC 12/08 PO 0835 Nystatin 1 DONITA BID 12/06 2100 AC 12/08 TOP 0835 Olanzapine 2.5 MG ONCE ONE 12/08 0015 DC 12/08 IM 12/08 0016 0020 Potassium Chloride 10 MEQ DAILY 12/07 0900 AC 12/08 PO 0835 Assessment/Plan Assessment: 86-year-old female with past medical history of HTN, HLD, status post left mastectomy remotely however unknown of surgical type/chemo/radiation. Patient was sent in by Dr. Nuno for eval of anemia and weight loss. Patient had no specific complaints and states she was in her usual state of health has been compliant with all her meds and on a regular [address] Borden. At baseline she does not have any exercise intolerance and ambulates freely she also only sees Dr. Borden and no other physicians. Per Dr. Borden patient loss 21 pounds in 3 months. Problem list/plan: #UTI -Urine Culture grew E. 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 DVT prophylaxis: Subcu heparin + ALPS Heart healthy diet Patient is full code Problem List: 1. EPI (acute kidney injury) 2. Weight loss 3. Delirium 4. UTI (urinary tract infection) Pain Ratin Pain Location: na Pain Goal: Pain 4 or less Pain Plan: per pathway Tomorrow's Labs & Rationales: CBC JAYLON Ontiveros MD,Amir 12/08/17 1414: Attending MD Review Statement Attending Statement Attending MD Statement: examined this patient, discuss w/resident/PA/BANQUET MANAGER, agreed w/resident/PA/BANQUET MANAGER, discussed with family, reviewed EMR data (avail), discussed with nursing Attending Assessment/Plan: Pt was seen. Events from last night noted. Currently in net bed. AAOx1 Found to have E.Coli UTI --start abx --cont to monitor for clinical improvement --pt will need STR upon discharge --spoke and updated son. --Please update her Son Cheo cell: [phone]
--- NOTE | 2017-12-08 12:55 | PN- Pulmonary ---
Subjective HPI/Critical Care Issues: Seen early this am Pt with delirium since last night in net bed Objective Current Medications: Current Medications Sig/Zoie Start time Last Medication Dose Route Stop Time Status Admin Acetaminophen 650 MG Q6P PRN 12/06 1545 AC 12/08 PO 0644 Amlodipine Besylate 5 MG QPM 12/06 2100 AC 12/07 PO 2126 Atenolol 25 MG DAILY 12/07 0900 AC 12/08 PO 0835 Atorvastatin Calcium 10 MG 1700 12/06 1700 AC 12/07 PO 1750 Cholecalciferol 2,000 IU DAILY 12/07 0900 AC 12/08 PO 0835 Famotidine 20 MG DAILY 12/07 1621 AC 12/08 PO 0835 Heparin Sodium 5,000 UNIT Q8 12/06 2200 AC 12/07 (Porcine) SC 2126 Losartan Potassium 50 MG DAILY 12/07 0900 AC 12/08 PO 0835 Nystatin 1 DONITA BID 12/06 2100 AC 12/08 TOP 0835 Olanzapine 2.5 MG ONCE ONE 12/08 0015 DC 12/08 IM 12/08 0016 0020 Potassium Chloride 10 MEQ DAILY 12/07 0900 AC 12/08 PO 0835 Vital Signs & I&O Last 24 Hrs of Vitals and I&O: Vital Signs Date Time Temp Pulse Resp B/P B/P Pulse O2 O2 Flow FiO2 Mean Ox Delivery Rate 12/08 0835 80 140/72 12/08 0835 80 140/72 12/08 0621 98.1 80 20 140/72 95 12/07 2137 98.5 69 20 138/64 94 Room Air 12/07 2126 138/64 12/07 1429 98.0 69 20 143/70 93 Room Air Intake & Output 12/08 1600 12/08 0800 12/08 0000 Intake Total 240 720 Output Total Balance 240 720 Intake, Oral 240 720 Laboratory Tests 12/07 12/07 1623 0640 Chemistry Sodium (137 - 145 mmol/L) 143 Potassium (3.5 - 5.1 mmol/L) 4.3 Chloride (98 - 107 mmol/L) 110 H Carbon Dioxide (22 - 30 mmol/L) 16 L Anion Gap (5 - 16) 18 H BUN (7 - 17 mg/dL) 30 H Creatinine (0.5 - 1.0 mg/dL) 1.5 H Estimated GFR (>60 ml/min) 33 L BUN/Creatinine Ratio (7 - 25 %) 20.0 Lactic Acid Cancelled Hematology CBC w Diff NO MAN DIFF REQ WBC (4.8 - 10.8 /CUMM) 7.1 RBC (4.20 - 5.40 /CUMM) 3.50 L Hgb (12.0 - 16.0 G/DL) 10.6 L Hct (37 - 47 %) 31.7 L MCV (81.0 - 99.0 FL) 90.4 MCH (27.0 - 31.0 PG) 30.1 MCHC (33.0 - 37.0 G/DL) 33.3 RDW (11.5 - 14.5 %) 12.7 Plt Count (130 - 400 /CUMM) 315 MPV (7.4 - 10.4 FL) 11.5 H Gran % (42.2 - 75.2 %) 67.2 Lymphocytes % (20.5 - 51.1 %) 24.2 Monocytes % (1.7 - 9.3 %) 6.3 Eosinophils % (0 - 5 %) 1.7 Basophils % (0.0 - 2.0 %) 0.6 Absolute Granulocytes (1.4 - 6.5 /CUMM) 4.8 Absolute Lymphocytes (1.2 - 3.4 /CUMM) 1.7 Absolute Monocytes (0.10 - 0.60 /CUMM) 0.4 Absolute Eosinophils (0.0 - 0.7 /CUMM) 0.1 Absolute Basophils (0.0 - 0.2 /CUMM) 0 Toxicology Salicylates Cancelled 12/06 2212 Urines Urine Color (YEL,AMB,STR) YEL Urine Clarity (CLEAR) CLEAR Urine pH (5.0 - 8.0) 6.0 Ur Specific [place] (1.001 - 1.035) 1.020 Urine Protein (NEG,<30 MG/DL) TRACE H Urine Ketones (NEG) 15 H Urine Nitrite (NEG) POS H Urine Bilirubin (NEG) NEG Urine Urobilinogen (0.1 - 1.0 EU/dl) 0.2 Ur Leukocyte Esterase (NEG) SMALL H Ur Microscopic SEDIMENT EXAMINED Urine RBC (0 - 5 /HPF) 1-3 Urine WBC (0 - 2 /HPF) 10-15 H Ur Epithelial Cells (NONE,FEW) MANY H Urine Bacteria (NEG/NONE) PACKD H Urine Hemoglobin (NEG) TRACE-INTACT Urine Glucose (N MG/DL) NEG Impression/Plan Impression/Plan Impression/Plan: CT scan of the head IMPRESSION: No acute intracranial hemorrhage or territorial infarction. Moderate to severe diffuse parenchymal volume loss. DICTATED BY: Kasi Cooley MD DATE/TIME DICTATED:12/06/171430 CT scan of the chest and abdomen IMPRESSION: Irregular opacity lateral segment right middle lobe subjacent to the right mastectomy is nonspecific but compatible with post radiation scarring. Correlate clinically. Pneumonia difficult to exclude without suitable comparison. Amorphous groundglass disease in the subpleural left upper lobe is consistent with a focal pneumonia. Recommend follow-up chest CT in 6-8 weeks after medical therapy to confirm resolution. No hydronephrosis. Cholelithiasis without evidence of cholecystitis. Moderate hiatal hernia. DICTATED BY: Ankur Martin MD DATE/TIME DICTATED:12/06/171434 General Appearance: Alert, mildly confused Skin: No Rashes, No Breakdown Skin Temp/Moisture Exam: Warm/Dry HEENT: Atraumatic, PERRLA, EOMI, Mucous Membr. moist/pink Neck: Supple, No JVD, No thryomegaly Lymphatic: Axillary nl, Cervical nl Cardiovascular: Regular Rate, Normal S1, Normal S2, No Murmurs Lungs: Clear to Auscultation, Normal Air Movement Abdomen: Normal Bowel Sounds, Soft, No Tenderness, No Hepatospenomegaly Neurological: Normal Speech, Strength at 5/5 X4 Ext, Normal Tone, Sensation Intact Extremities: No Clubbing, No Cyanosis, No Edema Vascular: Normal Pulses, Pulses Symmetrical IMPRESSION THIS is a lady with history of hypertension hyperlipidemia, remote history of breast cancer with mastectomy on the right with previous history of radiation and chemotherapy in the remote past, hypertension, hyperlipidemia, recent weight loss (patient is partially due to diet) came in with fatigue weight loss. She does have mild chronic kidney disease with acute kidney injury and she is now been resuscitated. She also did have elevated anion gap which is improving. No clinical evidence suggestive of sepsis. Her issues include * Left subpleural upper lobe opacity probably sequelae of pneumonitis. Patient does have hiatal hernia and she may have had GERD. No clinical evidence suggestive of active bacterial or fungal or viral pneumonitis. This needs serial follow-up with a CAT scan in the next few months * Postradiation change in the right middle lobe from previous right mastectomy and previous radiation appears relatively benign * Mild acute kidney injury probably due to poor p.o. intake now back to her baseline - rule out uti * Delirium since last night * Chronic anemia with no evidence of significant active bleeding so far * Osteoporosis * Other issues include hypertension, vitamin D deficiency, on and off chronic pain. RECOMMENDATION Continue current therapy Keep the head of bed elevated Start Pepcid daily, lifestyle modification for hiatal hernia treatment. Patient should not go to bed for 3 hours after she eats supper. She should keep her head of bed elevated at night. Delirium rx per primary team - check urine culture etc, and follow up anion gap acidosis Follow as outpatient. Patient was given my phone number yesterday. Please make sure upon discharge she should have a follow-up appt with me
[2017-12-08 15:02] VITALS: BP 150/69
[2017-12-08 22:10] VITALS: BP 156/80
[2017-12-09 06:30] VITALS: BP 150/70
--- NOTE | 2017-12-09 07:00 | PN- Housestaff ---
Naun Kaba 12/09/17 0700: Subjective Follow-up For: weight loss, EPI, delerium Complaints: no complaints Subjective: Patient seen and examined at the bedside. Patient currently on pain precautions due to delirium and fall risk. Following DC of net bed later today, patient will be seen by physical therapy, and given recommendations on disposition Review of Systems Constitutional: Reports: no symptoms. Objective Last 24 Hrs of Vital Signs/I&O Vital Signs Date Time Temp Pulse Resp B/P B/P Pulse O2 O2 Flow FiO2 Mean Ox Delivery Rate 12/09 0630 98.0 64 20 150/70 96 12/08 2210 97.9 79 18 156/80 96 12/08 2208 76 142/80 12/08 1502 98.4 60 20 150/69 96 Room Air Intake & Output 12/09 1600 12/09 0800 12/09 0000 Intake Total 200 Output Total 400 Balance -200 Intake, Oral 200 Output, Urine 400 Physical Exam General Appearance: Alert, Oriented X3, Cooperative, No Acute Distress Skin: No Rashes, No Breakdown Skin Temp/Moisture Exam: Warm/Dry HEENT: Atraumatic, PERRLA, EOMI Cardiovascular: Regular Rate, Normal S1, Normal S2 Lungs: Clear to Auscultation, Normal Air Movement Abdomen: No Tenderness, No Hepatospenomegaly Neurological: Normal Tone, Sensation Intact Current Medications: Current Medications Sig/Zoie Start time Last Medication Dose Route Stop Time Status Admin Acetaminophen 650 MG Q6P PRN 12/06 1545 AC 12/09 PO 1015 Amlodipine Besylate 5 MG QPM 12/06 2100 AC 12/08 PO 2208 Amoxicillin/ 500 MG Q12 12/08 1433 AC 12/09 Clavulanate Potassium PO 1008 Atenolol 25 MG DAILY 12/07 0900 AC 12/09 PO 1008 Atorvastatin Calcium 10 MG 1700 12/06 1700 AC 12/08 PO 1700 Cholecalciferol 2,000 IU DAILY 12/07 0900 AC 12/09 PO 1008 Famotidine 20 MG DAILY 12/07 1621 12/09 PO 1008 Heparin Sodium 5,000 UNIT Q8 12/06 2200 AC 12/09 (Porcine) SC 1335 Losartan Potassium 50 MG DAILY 12/07 0900 12/09 PO 1033 Nystatin 1 DONITA BID 12/06 2100 12/09 TOP 1007 Potassium Chloride 10 MEQ DAILY 12/07 0900 AC 12/09 PO 1008 Last 24 Hrs of Lab/Bret Results Last 24 Hrs of Labs/Mics: Laboratory Tests 12/09/17 0707: Anion Gap 11, Estimated GFR 39 L, BUN/Creatinine Ratio 15.4, CBC w Diff NO MAN DIFF REQ, RBC 3.77 L, MCV 90.3, MCH 30.6, MCHC 33.9, RDW 12.8, MPV 10.4, Gran % 65.4, Lymphocytes % 24.0, Monocytes % 7.3, Eosinophils % 2.5, Basophils % 0.8, Absolute Granulocytes 3.8, Absolute Lymphocytes 1.4, Absolute Monocytes 0.4, Absolute Eosinophils 0.1, Absolute Basophils 0 Assessment/Plan Assessment: 86-year-old female with past medical history of HTN, HLD, status post left mastectomy remotely however unknown of surgical type/chemo/radiation. Patient was sent in by Dr. Nuno for eval of anemia and weight loss. Patient had no specific complaints and states she was in her usual state of health has been compliant with all her meds and on a regular [address] Borden. At baseline she does not have any exercise intolerance and ambulates freely she also only sees Dr. Borden and no other physicians. Per Dr. Borden patient loss 21 pounds in 3 months. Problem list/plan: #UTI -Urine Culture grew E. 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 DVT prophylaxis: Subcu heparin + ALPS Heart healthy diet Patient is full code Problem List: 1. EPI (acute kidney injury) 2. Delirium 3. Weight loss 4. UTI (urinary tract infection) 5. Pneumonitis Pain Ratin Pain Location: none Pain Goal: Remain pain free Pain Plan: none in place Tomorrow's Labs & Rationales: none planned Nasrin Mcguire 12/09/17 1135: Attending MD Review Statement Attending Statement Attending MD Statement: examined this patient, discuss w/resident/PA/JUMPBASTING ARMHOLE BASTER, agreed w/resident/PA/JUMPBASTING ARMHOLE BASTER, discussed with family, reviewed EMR data (avail), discussed with nursing, discussed with case mgmt, reviewed images, amended to note Attending Assessment/Plan: Patient admitted here for EPI and dehydration and found to have UTI and now delirious overnight. Patient is receiving anitbiotics for UTI, follow culture. Patient is sleeping comfortably in her net bed. Her creatinine has improved since admsison with fluids. EPI resolved. Pulmoanry nodule: Pulmonary appreciated. Follow up outpatient. PT consult for general physical deconditioning. gi/dvt prophylaxis spoke to family bedside.
[2017-12-09 07:58] LABS: ABSOLUTE BASOPHIL COUNT 0 /CUMM (0.0-0.2); ABSOLUTE EOSINOPHIL COUNT 0.1 /CUMM (0.0-0.7); ABSOLUTE GRANULOCYTE CT 3.8 /CUMM (1.4-6.5); ABSOLUTE LYMPH COUNT 1.4 /CUMM (1.2-3.4); ABSOLUTE MONOCYTE COUNT 0.4 /CUMM (0.10-0.60); BASOPHIL % 0.8 % (0.0-2.0); EOSINOPHIL % 2.5 % (0-5); GRANULOCYTE % 65.4 % (42.2-75.2); HEMATOCRIT 34.1 % (37-47); MEAN CORPUSCULAR HGB 30.6 PG (27.0-31.0); MEAN CORPUSCULAR HGB CONC 33.9 G/DL (33.0-37.0); MEAN CORPUSCULAR VOLUME 90.3 FL (81.0-99.0); MEAN PLATELET VOLUME 10.4 FL (7.4-10.4); PLATELET COUNT 289 /CUMM (130-400); RBC DISTRIBUTION WIDTH 12.8 % (11.5-14.5); RED BLOOD CELL CT 3.77 /CUMM (4.20-5.40); WHITE BLOOD CELL COUNT 5.8 /CUMM (4.8-10.8)
[2017-12-09 14:46] VITALS: BP 106/55
[2017-12-09 21:18] VITALS: BP 150/60
--- NOTE | 2017-12-10 06:53 | PN- Housestaff ---
Naun Kaba 12/10/17 0653: Subjective Follow-up For: weight loss, uti, dementia/delirium Complaints: no complaints Subjective: Patient seen and examined at the bedside. Patient seems less confused and altered since yesterday, but still somewhat out of it. Patient denies any pain, shortness of breath, changes in bowel or bladder, or any other complaints. Idea of possible STR introduced patient, the patient would prefer to go home. Conversation will be continued with director of casework services. Review of Systems Constitutional: Reports: no symptoms, see HPI. EENTM: Reports: no symptoms. Cardiovascular: Reports: no symptoms. Respiratory: Reports: no symptoms. Gastrointestinal: Reports: no symptoms. Genitourinary: Reports: no symptoms. Musculoskeletal: Reports: no symptoms. Skin: Reports: no symptoms. Neurological/Psychological: Reports: no symptoms. Objective Last 24 Hrs of Vital Signs/I&O Vital Signs Date Time Temp Pulse Resp B/P B/P Pulse O2 O2 Flow FiO2 Mean Ox Delivery Rate 12/10 0910 60 128/70 12/10 0751 Room Air Room Air 12/10 0658 97.9 51 17 128/97 93 12/09 2127 55 150/60 12/09 2118 98.4 55 17 150/60 94 Room Air 12/09 1446 97.8 60 18 106/55 97 Room Air Intake & Output 12/10 1600 12/10 0800 12/10 0000 Intake Total 120 240 Output Total Balance 120 240 Intake, Oral 120 240 Number 1 Bowel Movements Physical Exam General Appearance: Oriented X3, Cooperative, No Acute Distress, mildly lethargic and decreased interactivity Skin: No Rashes, No Breakdown Skin Temp/Moisture Exam: Warm/Dry HEENT: Atraumatic, PERRLA, EOMI Neck: Supple, No JVD, No thryomegaly Cardiovascular: Regular Rate, Normal S1, Normal S2, No Murmurs Lungs: Clear to Auscultation, Normal Air Movement Abdomen: Soft, No Tenderness, No Hepatospenomegaly Neurological: Normal Speech, Strength at 5/5 X4 Ext, Normal Tone, Sensation Intact Extremities: No Clubbing, No Cyanosis, No Edema, need for podiatry consult - nails Current Medications: Current Medications Sig/Zoie Start time Last Medication Dose Route Stop Time Status Admin Acetaminophen 650 MG Q6P PRN 07/20 1545 AC 12/09 PO 1015 Amlodipine Besylate 5 MG QPM 12/06 2100 AC 12/09 PO 2127 Amoxicillin/ 500 MG Q12 12/08 1433 AC 12/10 Clavulanate Potassium PO 0911 Atenolol 25 MG DAILY 12/07 0900 AC 12/09 PO 1008 Atorvastatin Calcium 10 MG 1700 12/06 1700 AC 12/09 PO 1623 Cholecalciferol 2,000 IU DAILY 12/07 0900 AC 12/10 PO 0910 Famotidine 20 MG DAILY 12/07 1621 AC 12/10 PO 0910 Heparin Sodium 5,000 UNIT Q8 12/06 2200 AC 12/10 (Porcine) SC 0536 Losartan Potassium 50 MG DAILY 12/07 0900 AC 12/10 PO 0910 Nystatin 1 DONITA BID 12/06 2100 AC 12/10 TOP 0915 Potassium Chloride 10 MEQ DAILY 12/07 0900 AC 12/10 PO 0910 Assessment/Plan Assessment: 86-year-old female with past medical history of HTN, HLD, status post left mastectomy remotely however unknown of surgical type/chemo/radiation. Patient was sent in by Dr. Nuno for eval of anemia and weight loss. Patient had no specific complaints and states she was in her usual state of health has been compliant with all her meds and on a regular [address] Borden. At baseline she does not have any exercise intolerance and ambulates freely she also only sees Dr. Borden and no other physicians. Per Dr. Borden patient loss 21 pounds in 3 months. Anticipated STR discharge pending bed placement. Problem list/plan: #UTI -Urine Culture grew E. 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 DVT prophylaxis: Subcu heparin + ALPS Heart healthy diet Patient is full code Problem List: 1. Delirium 2. Pneumonitis 3. UTI (urinary tract infection) 4. EPI (acute kidney injury) 5. Weight loss Pain Ratin Pain Location: none Pain Goal: Remain pain free Pain Plan: none in place Tomorrow's Labs & Rationales: none; planned discharge Nasrin Mcguire 12/10/17 1046: Attending MD Review Statement Attending Statement Attending MD Statement: examined this patient, discuss w/resident/PA/WIRE ROPE SLING MAKER, agreed w/resident/PA/WIRE ROPE SLING MAKER, discussed with family, reviewed EMR data (avail), discussed with nursing, discussed with case mgmt, reviewed images, amended to note Attending Assessment/Plan: Pateint appears to be depressed. She is out of net bed. No acute hallucinations reported. 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 Her kidney fucntions have been improvng since admission. Poor PO intake and weight loss: encouraged PO intake, nutrition consult Pulmonary nodule , f/u pulmoanry Dr Howell as outpatient. General physical deconditioning STR at discharge.
[2017-12-10 06:58] VITALS: BP 128/97
[2017-12-10] MEDS ORDERED: AUGMENTIN 500-1 EACH PO (08:38)
--- NOTE | 2017-12-10 09:46 | Discharge Summary ---
See Addendum Visit Information Visit Dates Admission Date: 12/06/17 Discharge Date: 12/10/2017 Hospital Course Course Attending Physician: Shayla MOORE,Nasrin Primary Care Physician: Raul Faith MD Hospital Course: Ms. Gannon is an 86yo F w/ PMH of HTN, HLD, s/p left masectomy remotely likely 2007 however unknown of surgical type/chemo/radiation, sent in by Dr. Faith for eval of anemia and weight loss. Patient had no specific complaint and stated she was in her usual state of health and has been compliant with all her meds and on a regular lacnj-2-lakah visit to Dr. Faith. At baseline she did not have any exercise intolerance and ambulates freely. She also only sees Dr. Faith. Per Dr. Faith, patient lost 21lbs in 3 months. On admission, Vitals: Stable afebrile, BP 150/74, 95% RA -CBC: Unremarkable -BMP: Elevated creatinine 2.1, no previous baseline in our system -Head/Chest/Ab CT No acute intracranial hemorrhage or territorial infarction. Moderate to severe diffuse parenchymal volume loss. Irregular opacity lateral segment right middle lobe subjacent to the right mastectomy is nonspecific but compatible with post radiation scarring. Correlate clinically. Pneumonia difficult to exclude without suitable comparison. Amorphous groundglass disease in the subpleural left upper lobe is consistent with a focal pneumonia. Recommend follow-up chest CT in 6-8 weeks after medical therapy to confirm resolution. No hydronephrosis. Cholelithiasis without evidence of cholecystitis. Moderate hiatal hernia. -EKG: NSR w/o significant ST-T abnormalities. -Last Echo: remote echo however not in our system -Interventions in ER: NS bolus x 1 Problem list/Assessment/Hospital Course: #EPI 2/2 dehydration/prerenal #UTI uncomplicated w/o sepsis #AMS 2/2 UTI #Incidental findings of FARHAN "Amorphous groundglass disease" w/ possible chronic change of RML from previous masectomy/radiation #PMH of HTN, HLD, s/p LEFT masectomy Patient was admitted to general medicine and started on IVF bolus and continuous hydration and monitered on daily labs. With incidental findings of UTI and patient's altered mental status overnight since admission, patient was started on empiric coverage with PO Augmentin. Patient was also started on Zyprexa PRN for mental stability and a net bed was used to prevent unsafe ambulation. Patient improved over the treatment and mentally stable for discharge. PT eval suggested STR placement before going home. Pulmonology consult recommended pepcid for hiatal hernia, and will follow up the lung imaging change in outpatient. DVT prophylaxis heparin SC + ALPS Heart Healthy Diet IV Access: Peripheral IV Full Code Allergies: Coded Allergies: No Known Allergies (12/06/17) Pertinent Lab Results: SERVICE DATE: 12/06/17 EXAM TYPE: CAT - CT ABD & PELVIS W/O IV CONTRAS; CT CHEST WO IV CONTRAST IMPRESSION: Irregular opacity lateral segment right middle lobe subjacent to the right mastectomy is nonspecific but compatible with post radiation scarring. Correlate clinically. Pneumonia difficult to exclude without suitable comparison. Amorphous groundglass disease in the subpleural left upper lobe is consistent with a focal pneumonia. Recommend follow-up chest CT in 6-8 weeks after medical therapy to confirm resolution. No hydronephrosis. Cholelithiasis without evidence of cholecystitis. Moderate hiatal hernia. SERVICE DATE: 12/06/17 EXAM TYPE: CAT - CT HEAD WO IV CONTRAST IMPRESSION: No acute intracranial hemorrhage or territorial infarction. Moderate to severe diffuse parenchymal volume loss. Disposition Summary Disposition Principal Diagnosis: #EPI 2/2 dehydration/prerenal #UTI uncomplicated w/o sepsis #AMS 2/2 UTI #Incidental findings of FARHAN "Amorphous groundglass disease" w/ possible chronic change of RML from previous masectomy/radiation #PMH of HTN, HLD, s/p LEFT masectomy Additional Diagnosis: as above Discharge Disposition: SNF Discharge Instructions General Discharge Information Code Status: Full Code Patient's Diet: as tolerated Patient's Activity: as tolerated Follow-Up Instructions/Appts: - Please follow up with your lung specialist Dr. Howell for further evaluation of your new chest x-ray findings. - Please follow up with your primary care physician within 1-2 weeks of discharge. Inform your primary care physician of this admission to [facility]. - Continue your current medications per discharge instructions. - Please watch for these problems: Fever, Chills, Nausea, Vomiting, Shortness of Breath, Productive Cough, Chest Pain/Discomfort, Abdominal Pain, Active Bleeding or Bloody urine/stool. Medications at Discharge Discharge Medications: Stop taking the following medications: Potassium Chloride (Potassium Chloride) 10 MEQ CAPSULE.ER ORAL DAILY Continue taking these medications: Lovastatin (Lovastatin) 40 MG TABLET 2 Tablet ORAL DAILY Instructions: with food Comments: LIPITOR GIVEN Last Taken: 12/09/17 Time: 1623 Atenolol (Atenolol) 25 MG TABLET 1 Tablet ORAL DAILY Comments: Last Taken: 12/09/17 Time: 1008 Tramadol HCl (Tramadol HCl) 50 MG TABLET 1 Tablet ORAL DAILY NEEDED as needed for PAIN Comments: NOT GIVEN Cholecalciferol (Vitamin D3) (Vitamin D-3) 2,000 UNIT CAPSULE 1 Capsule ORAL DAILY Comments: Last Taken: 12/10/17 Time: 0900 Losartan Potassium (Cozaar) 50 MG TABLET 1 Tablet ORAL DAILY Comments: Last Taken: 12/10/17 Time: 0900 Amlodipine Besylate (Amlodipine Besylate) 5 MG TABLET 1 Tablet ORAL Every night Comments: Last Taken: 12/09/17 Time: 2126 Start taking the following new medications: Augmentin (Augmentin 500-125 Tablet) 500 MG-125 MG TABLET 500 Milligram ORAL EVERY 12 HOURS Qty = 4 No Refills Comments: Last Taken: 12/10/17 Time: 0900 Copies To: Vianney MOORE,Raul Cantor MD Review Statement Documenting Attending: Nasrin Mcguire MD
[2017-12-10 14:47] VITALS: BP 128/70
[2017-12-10 15:00] VITALS: BP 130/62
[2017-12-10 16:50] VITALS: BP 130/62
== END 2017-12-10 17:55 | DRG 683 ==
LOC: ERH 11:48 → ERHI 14:14 → 2NB 14:14 → ENRESERV 14:40 → ENTRNSPT 16:06 → EDTRNSPTSTS 16:21 → EDTRNSPT 16:21 → 2NB 16:29 → CMPTRNSPT 16:41 → ENPENDDIS 12-10 14:24 → 2NB 12-10 17:55
PROVIDERS: Physical Medicine & Rehabilitation; Physician Assistant
DX: N17.9 Acute kidney failure, unspecified (principal); N39.0 Urinary tract infection, site not specified; E87.2 Acidosis; F05 Delirium due to known physiological condition; B96.20 Unspecified Escherichia coli [E. coli] as the cause of diseases classified elsewhere; E55.9 Vitamin D deficiency, unspecified; M81.0 Age-related osteoporosis without current pathological fracture; K44.9 Diaphragmatic hernia without obstruction or gangrene; I10 Essential (primary) hypertension; E78.5 Hyperlipidemia, unspecified; R63.4 Abnormal weight loss; Z90.12 Acquired absence of left breast and nipple; Z85.3 Personal history of malignant neoplasm of breast; D64.9 Anemia, unspecified; Z92.21 Personal history of antineoplastic chemotherapy; Z92.3 Personal history of irradiation; R91.1 Solitary pulmonary nodule; F32.9 Major depressive disorder, single episode, unspecified
CPT/HCPCS: 2NBSP; 36415; 36592; 74176; 81001; 82436; 93005; 93010; 97110-GO; 97116-GO; 97161-GP; 97530-GO; G0480; J1644; J3490

== ENCOUNTER 2017-12-22 15:11 | Inpatient (IN) | payer OTHER ==
[~2017-12-22] VITALS: Ht 152.4 cm; Wt 68.9 kg
[~2017-12-22 15:11] MED LIST: AMLODIPINE BESYL5 M1 PO; ATENOLOL25 M1 PO; AUGMENTIN 500-1 EACH PO; COZAAR50 M1 PO; LOVASTATIN40 M1 PO; POTASSIUM CHLO10 ME3 PO; TRAMADOL HCL50 M1 PO; VITAMIN D-32000 UNI1 PO
--- NOTE | 2017-12-22 16:50 | ULTRASOUND REPORT ---
EXAMINATION: US ABDOMEN LIMITED CLINICAL INFORMATION: Right upper quadrant pain for 3 days. COMPARISON: CT performed 12/06/2017. TECHNIQUE: Real-time imaging of the right upper quadrant abdominal viscera. FINDINGS: PANCREAS: There is a 1.2 x 1.0 x 0.9 cm nonvascular rounded cystic lesion in the pancreatic tail. No convincing suspicious features. No pancreatic ductal dilatation. LIVER: Question mild left intrahepatic biliary ductal prominence. No discrete hepatic lesion. Hepatic echogenicity is within normal limits. GALLBLADDER: There is cholelithiasis. There is gallbladder wall thickening and mild wall hyperemia. There is tenderness in the area of the gallbladder upon sonography. COMMON BILE DUCT: Normal in caliber measuring 0.5 cm in diameter. RIGHT KIDNEY: There is a 2.4 cm cyst in the lower pole the right kidney without convincing suspicious features, favor Bosniak 1. No hydronephrosis. No renal calculi or focal parenchymal lesions. The kidney measures 3.9 cm in maximum dimension. FREE FLUID: None. IMPRESSION: Cholelithiasis. Gallbladder wall thickening and tenderness in the area of the gallbladder upon sonography is concerning for acute cholecystitis. No dilatation of the common bile duct. Borderline prominence of left intrahepatic biliary ducts. A 1.2 cm pancreatic tail cyst without convincing suspicious features. Recommend sonographic surveillance (6-12 months) or not emergent further evaluation with abdominal MRI without and with contrast.
[2017-12-22] MEDS ORDERED: MARINOL2.5 MG PO (16:53)
[2017-12-22] MEDS ORDERED: NUTRITIONAL SH PO (16:54)
[2017-12-22 17:02] LABS: ABSOLUTE BASOPHIL COUNT 0.1 /CUMM (0.0-0.2); ABSOLUTE EOSINOPHIL COUNT 0 /CUMM (0.0-0.7); ABSOLUTE GRANULOCYTE CT 14.8 /CUMM (1.4-6.5); ABSOLUTE LYMPH COUNT 1.1 /CUMM (1.2-3.4); ABSOLUTE MONOCYTE COUNT 0.8 /CUMM (0.10-0.60); BASOPHIL % 0.8 % (0.0-2.0); EOSINOPHIL % 0 % (0-5); GRANULOCYTE % 87.4 % (42.2-75.2); HEMATOCRIT 34.2 % (37-47); MEAN CORPUSCULAR HGB 30.4 PG (27.0-31.0); MEAN CORPUSCULAR HGB CONC 33.3 G/DL (33.0-37.0); MEAN CORPUSCULAR VOLUME 91.4 FL (81.0-99.0); MEAN PLATELET VOLUME 9.9 FL (7.4-10.4); PLATELET COUNT 269 /CUMM (130-400); RBC DISTRIBUTION WIDTH 13.9 % (11.5-14.5); RED BLOOD CELL CT 3.74 /CUMM (4.20-5.40)
[2017-12-22] MEDS ORDERED: ACETAMINOPHEN325 M2 PO (17:23)
[2017-12-22] MEDS ORDERED: DULCOLAX10 M1 RC (17:23)
[2017-12-22] MEDS ORDERED: FLEET ENEMA133 ML RC (17:26)
[2017-12-22] MEDS ORDERED: MILK OF MA400 MG/52 PO (17:28)
[2017-12-22] MEDS ORDERED: TRAMADOL HCL50 M1 PO (17:53)
--- NOTE | 2017-12-22 18:05 | ED GI/GU/ABDOMINAL COMPLAINT ---
History of Present Illness General Chief Complaint: Fever Stated Complaint: BIBA FEVER, WEAKNESS Source: patient Exam Limitations: dementia Vital Signs & Intake/Output Vital Signs & Intake/Output Vital Signs Date Time Temp Pulse Resp B/P B/P Pulse O2 O2 Flow FiO2 Mean Ox Delivery Rate 12/22 2211 97.8 77 18 113/56 97 Nasal 2.0L Cannula 12/22 2006 99.1 69 18 117/56 93 Nasal 2.0L Cannula 12/22 1906 100.8 12/22 1723 100.8 74 20 124/58 95 Room Air 12/22 1522 100.5 84 20 139/64 94 Room Air Allergies Coded Allergies: No Known Allergies (12/06/17) Reconcile Medications Acetaminophen 325 MG TABLET 2 TAB PO Q4H PRN PAIN/TEMP>101 (Reported) Amlodipine Besylate 5 MG TABLET 1 TAB PO QPM HEART (Reported) Atenolol 25 MG TABLET 1 TAB PO DAILY HEART (Reported) Bisacodyl (Dulcolax) 10 MG SUPP.RECT 1 SUP RC AD PRN CONSTIPATION (Reported) Cholecalciferol (Vitamin D3) (Vitamin D-3) 2,000 UNIT CAPSULE 1 CAP PO DAILY VITAMIN SUPPORT (Reported) Dronabinol (Marinol) 2.5 MG CAPSULE 1 CAP PO QHS POOR APPETITE (Reported) Lactose-Reduced Food (Nutritional Shake) 237 ML LIQUID 120 ML PO TID NUTRITIONAL SUPPLEMENT (Reported) Losartan Potassium (Cozaar) 50 MG TABLET 1 TAB PO DAILY HEART (Reported) Lovastatin 40 MG TABLET 2 TAB PO DAILY CHOLESTEROL (Reported) with food Magnesium Hydroxide (Milk Of Magnesia) 400 MG/5 ML ORAL.SUSP 30 ML PO AD PRN CONSTIPATION (Reported) Na Phos,M-B/Na Phos,Di-Ba (Fleet Enema) 19 GRAM-7 GRAM/118 ML ENEMA 1 E RC AD PRN CONSTIPATION (Reported) Tramadol HCl 50 MG TABLET 1 TAB PO DAILY NEEDED PRN PAIN (Reported) Tramadol HCl 50 MG TABLET 1 TAB PO DAILY PAIN (Reported) Triage Note: 86 YEAR OLD FEMALE BIBA FROM [facility] FOR RUQ PAIN AND FEVER. PT ARRIVES TO ALERT COMPLAINING OF ABDOMINAL PAIN. PT IS POOR HISTORIAN BUT PT'S SON IS AT BEDSIDE AND IS ABLE TO GIVE INSIGHT INTO MEDICAL HISTORY. UPON ASSESSMENT PT REPORTS INCREASED PAIN ONLY WITH PALPATION TO RUQ. PER PT SON PT HAS HISTORY OF GALLSTONES. LORI LOMAX UPDATED ON PT STATUS. NURSING WILL CONTINUE TO MONITOR. Triage Nurses Notes Reviewed? yes ? N Is pt currently ? No Onset: Abrupt Duration: day(s): Location: unknown Radiation: no radiation Activities at Onset: none HPI: 86-year-old female sent into the emergency room from nursing facility for fevers and abdominal pain. Patient currently denies any abdominal pain but admits to pain intermittently. Denies any vomiting cough. No changes in bowel movement. History of dementia so history is somewhat limited. (Huy Good) Past History Travel History Traveled to [place] past 21 day No Medical History Any Pertinent Medical History? 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 No (Huy Good) Review of Systems Review of Systems Constitutional: Reports: see HPI. EENTM: Reports: no symptoms. Respiratory: Reports: no symptoms. Cardiovascular: Reports: no symptoms. GI: Reports: see HPI. Genitourinary: Reports: no symptoms. Musculoskeletal: Reports: no symptoms. Skin: Reports: no symptoms. Neurological/Psychological: Reports: no symptoms. Hematologic/Endocrine: Reports: no symptoms. Immunologic/Allergic: Reports: no symptoms. All Other Systems: Reviewed and Negative (Huy Good) Physical Exam Physical Exam General Appearance: well developed/nourished, alert, awake Head: atraumatic Eyes: Bilateral: normal appearance. Ears, Nose, Throat, Mouth: hearing grossly normal, moist mucous membrane Neck: normal inspection Respiratory: no respiratory distress Cardiovascular: regular rate/rhythm Gastrointestinal: soft, tenderness (RUQ) Back: normal inspection Extremities: normal range of motion Neurologic/Psych: awake, alert Skin: intact Core Measures ACS in differential dx? No Sepsis Present: No Sepsis Focused Exam Completed? No (Huy Good) Progress Differential Diagnosis: appendicitis, cholecystitis, diverticulitis, gastritis, ischemic bowel, PUD/GERD, SBO, UTI/pyelo Plan of Care: Orders Procedure Date/time Status Nothing by Mouth 12/23 B Active CBC WITHOUT DIFFERENTIAL 12/23 599 Active BASIC ELECTROLYTES PLUS BUN&CR 12/23 599 Active Pathway - chart 12/23 2007 Active Code Status 12/23 2007 Active Patient Data 12/22 2001 Active ED Holding Orders 12/22 1937 Active Admit to inpatient 12/22 193 Active Vital Signs 12/22 1937 Active Code Status 12/22 193 Complete LACTIC ACID 12/22 1822 Active Add-on Test (ER Only) 12/22 180 Active PARTIAL THROMBOPLASTIN TIME 12/22 165 Complete PROTHROMBIN TIME 12/22 165 Complete TYPE & SCREEN (NOT X-MATCH) 12/22 165 Complete BLOOD CULTURE 12/22 1522 Active TROPONIN LEVEL 12/22 1522 Complete LIPASE 12/22 1522 Complete LACTIC ACID 12/22 1522 Complete COMPREHENSIVE METABOLIC PANEL 12/22 1522 Complete CBC WITHOUT DIFFERENTIAL 12/22 1522 Complete AMYLASE 12/22 1522 Complete EKG 12/22 1522 Active Admit to inpatient 12/22 UNK Active VTE Mechanical Prophylaxis 12/22 UNK Active Vital Signs 12/22 UNK Active Intake & Output 12/22 UNK Active Activity/Ambulation 12/22 UNK Active Current Medications Sig/Zoie Start time Last Medication Dose Stop Time Status Admin Atenolol 25 MG DAILY 12/23 899 AC (Tenormin) Losartan Potassium 50 MG DAILY 12/23 899 AC (Cozaar) Ampicillin Sodium/ 1,500 MG Q12H 12/22 2330 AC Sulbactam Sodium (Unasyn) Sodium Chloride 100 ML (Normal Saline 0.9%) Heparin Sodium 5,000 UNIT Q8 12/22 2200 AC (Porcine) Amlodipine Besylate 5 MG QPM 12/22 2100 AC (Norvasc) Acetaminophen 1,000 MG Q6P PRN 12/22 2014 AC (Ofirmev) N/A 1 UNIT (No Carrier) Dextrose/Sodium 1,000 ML .Q10H 12/22 2014 AC Chloride (D5-Normal Saline) Ondansetron HCl 4 MG Q6-PRN PRN 12/22 2014 AC (Zofran) Laboratory Tests 12/22/171652: Anion Gap 8, Estimated GFR 31 L, BUN/Creatinine Ratio 21.3, Glucose 113 H, Lactic Acid 1.2, Calcium 9.4, Total Bilirubin 0.7, AST 22, ALT 23, Alkaline Phosphatase 80, Troponin I 0.02, Total Protein 6.5, Albumin 3.1 L, Globulin 3.4 , Albumin/Globulin Ratio 0.9 L, Amylase 39, Lipase 26, PT 13.1 H, INR 1.20 H, APTT 29, CBC w Diff MAN DIFF ORDERED, RBC 3.74 L, MCV 91.4, MCH 30.4, MCHC 33.3 , RDW 13.9, MPV 9.9, Gran % 87.4 H, Lymphocytes % 6.8 L, Monocytes % 5.0, Eosinophils % 0, Basophils % 0.8, Absolute Granulocytes 14.8 H, Segmented Neutrophils 89 H, Band Neutrophils 2, Absolute Lymphocytes 1.1 L, Lymphocytes 6 L, Monocytes 3, Absolute Monocytes 0.8 H, Absolute Eosinophils 0, Absolute Basophils 0.1, Platelet Estimate ADEQUATE, Normocytic RBCs VERIFIED, Normochromic RBCs VERIFIED, Fld Total RBCs Counted 100 Microbiology 12/22 1652 BLOOD: Blood Culture - RECD 12/22 153 BLOOD: Blood Culture - RECD Diagnostic Imaging: Viewed by Me: Ultrasound. Discussed w/RAD: Ultrasound. Radiology Impression: PATIENT: NAIF BOWERS PRESENT AGE: 86 PATIENT ACCOUNT NO: [id number] : 32 LOCATION: [facility] ORDERING PHYSICIAN: Huy SANDOVAL SERVICE DATE: 12/22/17 EXAM TYPE : US - US-LIMITED ABDOMEN EXAMINATION: US ABDOMEN LIMITED CLINICAL INFORMATION: Right upper quadrant pain for 3 days. COMPARISON: CT performed 12/06/2017. TECHNIQUE: Real-time imaging of the right upper quadrant abdominal viscera. FINDINGS: PANCREAS: There is a 1.2 x 1.0 x 0.9 cm nonvascular rounded cystic lesion in the pancreatic tail. No convincing suspicious features. No pancreatic ductal dilatation. LIVER: Question mild left intrahepatic biliary ductal prominence. No discrete hepatic lesion. Hepatic echogenicity is within normal limits. GALLBLADDER: There is cholelithiasis. There is gallbladder wall thickening and mild wall hyperemia. There is tenderness in the area of the gallbladder upon sonography. COMMON BILE DUCT: Normal in caliber measuring 0.5 cm in diameter. RIGHT KIDNEY: There is a 2.4 cm cyst in the lower pole the right kidney without convincing suspicious features, favor Bosniak 1. No hydronephrosis. No renal calculi or focal parenchymal lesions. The kidney measures 3.9 cm in maximum dimension. FREE FLUID: None. IMPRESSION: Cholelithiasis. Gallbladder wall thickening and tenderness in the area of the gallbladder upon sonography is concerning for acute cholecystitis. No dilatation of the common bile duct. Borderline prominence of left intrahepatic biliary ducts. A 1.2 cm pancreatic tail cyst without convincing suspicious features. Recommend sonographic surveillance (6-12 months) or not emergent further evaluation with abdominal MRI without and with contrast. DICTATED BY: Vern Real MD DATE/TIME DICTATED:12/22/171642 ECHOCARDIOGRAPHY TECHNOLOGIST:DEMARCO DATE/TIME TRANSCRIBED:12/22/171642 CONFIDENTIAL, DO NOT COPY WITHOUT APPROPRIATE AUTHORIZATION. <Electronically signed in Other Vendor System> SIGNED BY: Vern Real MD 12/22/17 1650 Initial ED EKG: normal sinus rhythm, rate (70) (Huy Good) Departure Departure Disposition: STILL A PATIENT Condition: Stable Clinical Impression Primary Impression: Acute cholecystitis Referrals: Vianney MOORE,Raul Chung (PCP/Family) Departure Forms: Customer Survey General Discharge Information Admission Note Spoke With: Roni Schmitz DO Documentation of Exam: Documentation of any treatments & extenuating circumstances including Concerns Regarding Discharge (functional status, medication knowledge or non-compliance, living conditions, etc.) that warrant an admission rather than observation: Spoke with surgical PA spoke with Dr. Salmon. Patient will be admitted for IV antibiotics and percutaneous drainage of the gallbladder tomorrow by IR. High risk. Medically not safe for discharge. (Huy Good) PA/LIQUEFIER Co-Sign Statement Statement: ED Attending supervision documentation- [X] I saw and evaluated the patient. I have also reviewed all the pertinent lab results and diagnostic results. I agree with the findings and the plan of care as documented in the PA's/LIQUEFIER's documentation. [X] I have reviewed the ED Record and agree with the PA's/LIQUEFIER's documentation. [] Additions or exceptions (if any) to the PAs/LIQUEFIER's note and plan are summarized below: [Patient to be admitted for acute cholecystitis, either PERC LEONARD drainage tomorrow, and the antibiotics, case management consultation] (Jose Angel MOORE,Kasi Figueroa) Critical Care Note Critical Care Note Critical Care Time: 30-74 min (35) (Isiah SANDOVAL,Huy)
[2017-12-22 18:20] LABS: PT 13.1 SEC (9.4-12.5); PTT 29 SEC (25-37)
--- NOTE | 2017-12-22 18:52 | History & Physical Pre-Op ---
Juliette Looney 12/22/17 4302: General Information and HPI History of Present Illness: 86yoF brought in by ambulance from [facility] for low grade fevers and ruq pain. Pt has dementia at baseline and is a poor historian. Per pt, she feels fine and isnt sure why she is in the emergency room. Pt's son Levy arrived, who gave this history. [facility] the [facility] few [facility] after a 5day stay here at for weight loss, poor PO intake, anemia and weakness. She was noted to have abd pain and low grade fevers (unsure of when this started) and pts' son was contacted today by [facility] that she was on her way to ED. Prior to previous admission, she lived in her own home with her son. Allergies/Medications Allergies: Coded Allergies: No Known Allergies (12/06/17) Home Med list Acetaminophen 325 MG TABLET 2 TAB PO Q4H PRN PAIN/TEMP>101 (Reported) Amlodipine Besylate 5 MG TABLET 1 TAB PO QPM HEART (Reported) Atenolol 25 MG TABLET 1 TAB PO DAILY HEART (Reported) Bisacodyl (Dulcolax) 10 MG SUPP.RECT 1 SUP RC AD PRN CONSTIPATION (Reported) Cholecalciferol (Vitamin D3) (Vitamin D-3) 2,000 UNIT CAPSULE 1 CAP PO DAILY VITAMIN SUPPORT (Reported) Dronabinol (Marinol) 2.5 MG CAPSULE 1 CAP PO QHS POOR APPETITE (Reported) Lactose-Reduced Food (Nutritional Shake) 237 ML LIQUID 120 ML PO TID NUTRITIONAL SUPPLEMENT (Reported) Losartan Potassium (Cozaar) 50 MG TABLET 1 TAB PO DAILY HEART (Reported) Lovastatin 40 MG TABLET 2 TAB PO DAILY CHOLESTEROL (Reported) with food Magnesium Hydroxide (Milk Of Magnesia) 400 MG/5 ML ORAL.SUSP 30 ML PO AD PRN CONSTIPATION (Reported) Na Phos,M-B/Na Phos,Di-Ba (Fleet Enema) 19 GRAM-7 GRAM/118 ML ENEMA 1 E RC AD PRN CONSTIPATION (Reported) Tramadol HCl 50 MG TABLET 1 TAB PO DAILY NEEDED PRN PAIN (Reported) Tramadol HCl 50 MG TABLET 1 TAB PO DAILY PAIN (Reported) Past History Medical History Neurological: dementia Cardiovascular: hypertension, hyperlipidemia Renal: chronic kidney disease History of MRSA: No History of VRE: No History of CDIFF: No Surgical History Pertinent Surgical History: none Past Family/Social History Family History Relations & Conditions if any Relation not specified for: *No pertinent family history Psychosocial History Where Do You Live? Acute Rehab Primary Language: Korean Functional Ability Ambulation: walker Exam & Diagnostic Data Last 24 Hrs of Vital Signs/I&O Vital Signs Date Time Temp Pulse Resp B/P B/P Pulse O2 O2 Flow FiO2 Mean Ox Delivery Rate 12/22 1723 100.8 74 20 124/58 95 Room Air 12/22 1522 100.5 84 20 139/64 94 Room Air Physical Exam: gen- nad card-s1s2 rrr pulm- ctab abd- soft, nd, +bs, ttp ruq and epigastrum, no masses/lesions appreciated ext- calves soft nt bl Last 24 Hrs of Labs/Bret: Laboratory Tests 12/22/171652: Anion Gap 8, Estimated GFR 31 L, BUN/Creatinine Ratio 21.3, Glucose 113 H, Lactic Acid 1.2, Calcium 9.4, Total Bilirubin 0.7, AST 22, ALT 23, Alkaline Phosphatase 80, Troponin I 0.02, Total Protein 6.5, Albumin 3.1 L, Globulin 3.4 , Albumin/Globulin Ratio 0.9 L, Amylase 39, Lipase 26, PT 13.1 H, INR 1.20 H, APTT 29, CBC w Diff MAN DIFF ORDERED, RBC 3.74 L, MCV 91.4, MCH 30.4, MCHC 33.3 , RDW 13.9, MPV 9.9, Gran % 87.4 H, Lymphocytes % 6.8 L, Monocytes % 5.0, Eosinophils % 0, Basophils % 0.8, Absolute Granulocytes 14.8 H, Segmented Neutrophils 89 H, Band Neutrophils 2, Absolute Lymphocytes 1.1 L, Lymphocytes 6 L, Monocytes 3, Absolute Monocytes 0.8 H, Absolute Eosinophils 0, Absolute Basophils 0.1, Platelet Estimate ADEQUATE, Normocytic RBCs VERIFIED, Normochromic RBCs VERIFIED, Fld Total RBCs Counted 100 Microbiology 12/22 1652 BLOOD: Blood Culture - RECD 12/22 1536 BLOOD: Blood Culture - RECD Diagnostic Data Other Results SERVICE DATE: 12/22/17-1521 EXAM TYPE: US - US-LIMITED ABDOMEN EXAMINATION: US ABDOMEN LIMITED CLINICAL INFORMATION: Right upper quadrant pain for 3 days. COMPARISON: CT performed 12/06/2017. TECHNIQUE: Real-time imaging of the right upper quadrant abdominal viscera. FINDINGS: PANCREAS: There is a 1.2 x 1.0 x 0.9 cm nonvascular rounded cystic lesion in the pancreatic tail. No convincing suspicious features. No pancreatic ductal dilatation. LIVER: Question mild left intrahepatic biliary ductal prominence. No discrete hepatic lesion. Hepatic echogenicity is within normal limits. GALLBLADDER: There is cholelithiasis. There is gallbladder wall thickening and mild wall hyperemia. There is tenderness in the area of the gallbladder upon sonography. COMMON BILE DUCT: Normal in caliber measuring 0.5 cm in diameter. RIGHT KIDNEY: There is a 2.4 cm cyst in the lower pole the right kidney without convincing suspicious features, favor Bosniak 1. No hydronephrosis. No renal calculi or focal parenchymal lesions. The kidney measures 3.9 cm in maximum dimension. FREE FLUID: None. IMPRESSION: Cholelithiasis. Gallbladder wall thickening and tenderness in the area of the gallbladder upon sonography is concerning for acute cholecystitis. No dilatation of the common bile duct. Borderline prominence of left intrahepatic biliary ducts. A 1.2 cm pancreatic tail cyst without convincing suspicious features. Recommend sonographic surveillance (6-12 months) or not emergent further evaluation with abdominal MRI without and with contrast. Assessment/Plan Assessment/Plan: A- 86F with cholecystitis and acute on chronic kidney disease, PMHx htn, hyperlipidemia, dementia, with leukocytosis of 18K without LFT abnormalities, with lowgrade fevers, otherwise stable. P- Discussed care plan with Dr. Schmitz and pt's son Levy. IR will be consulted in the am for placement of a perc sharon tube. Due to pts overall poor nutrition , weight loss, recent admission and dementia, ir intervention more favorable than surgery under general anesthesia. NPO, IVF, renally adjusted unasyn, am labs, serial abd exams. Code status discussed with pt's son, pt is DNI. Dr. Schmitz to see pt in am. As Ranked By This Provider Problem List: 1. Cholecystitis 2. Dementia 3. Acute on chronic kidney failure 4. HTN (hypertension) 5. Hyperlipidemia Roni Schmitz DO 12/23/17 8928: Attending MD Review Statement Attending Statement Attending MD Statement: examined this patient, discuss w/resident/PA/RECRUITER COORDINATOR, agreed w/resident/PA/RECRUITER COORDINATOR, discussed with family, reviewed EMR data (avail), reviewed images Attending Assessment/Plan: Patient seen and examined, agree with above. Dementia, has been at a rehab/SNF due to recent hospitalization for weight loss and AMS. unclear duration of symptoms as patient is a very poor historian and could have been going on for a long time. At present time denies any pain. Tm 100.8 VSS. Abd-soft, NT/ND, cholecystostomy tube in place. Evelyn c/w cholecystitis. Labs reviewed. Given baseline dementia and recent deterioration, likely not a great surgical candidate at this time. Also unclear as to the duration of symptoms and could be much longer than reported. No surgical intervention at this time, IR perc drain done, F/U cxs, IV Abx, drain to stay in for at least 6 weeks, ok to start diet.
--- NOTE | 2017-12-22 20:16 | Admission Core Measures ---
Acute Coronary Syndrome (CM) ACS Core Measures Acute Coronary Syndrome Diagnosis No Congestive Heart Failure (NEW) CHF Core Measures Congestive Heart Failure Diagnosis No Cerebrovascular Accident CVA Core Measures CVA/TIA Diagnosis No Venous Thromboembolism VTE Core Juany (View Protocol) VTE Risk Factors Age>40 No Mechanical VTE Prophylaxis d/t N/A MechProphylax Ordered No VTE Pharm Prophylaxis d/t NA PharmProphylax ordered Problem List As ranked by this Provider includes Assessment & Plan 1. Cholecystitis 2. Dementia 3. Acute on chronic kidney failure HOME MEDS Home Med List Acetaminophen 325 MG TABLET 2 TAB PO Q4H PRN PAIN/TEMP>101 (Reported) Amlodipine Besylate 5 MG TABLET 1 TAB PO QPM HEART (Reported) Atenolol 25 MG TABLET 1 TAB PO DAILY HEART (Reported) Bisacodyl (Dulcolax) 10 MG SUPP.RECT 1 SUP RC AD PRN CONSTIPATION (Reported) Cholecalciferol (Vitamin D3) (Vitamin D-3) 2,000 UNIT CAPSULE 1 CAP PO DAILY VITAMIN SUPPORT (Reported) Dronabinol (Marinol) 2.5 MG CAPSULE 1 CAP PO QHS POOR APPETITE (Reported) Lactose-Reduced Food (Nutritional Shake) 237 ML LIQUID 120 ML PO TID NUTRITIONAL SUPPLEMENT (Reported) Losartan Potassium (Cozaar) 50 MG TABLET 1 TAB PO DAILY HEART (Reported) Lovastatin 40 MG TABLET 2 TAB PO DAILY CHOLESTEROL (Reported) Magnesium Hydroxide (Milk Of Magnesia) 400 MG/5 ML ORAL.SUSP 30 ML PO AD PRN CONSTIPATION (Reported) Na Phos,M-B/Na Phos,Di-Ba (Fleet Enema) 19 GRAM-7 GRAM/118 ML ENEMA 1 E RC AD PRN CONSTIPATION (Reported) Tramadol HCl 50 MG TABLET 1 TAB PO DAILY NEEDED PRN PAIN (Reported) Tramadol HCl 50 MG TABLET 1 TAB PO DAILY PAIN (Reported)
[2017-12-22 23:01] VITALS: BP 119/50
[2017-12-23 06:46] VITALS: BP 144/66
--- NOTE | 2017-12-23 08:11 | Cons- Medical ---
Mirna Begum 12/23/17 0810: General Information and HPI Consulting Request Date of Consult: 12/23/17 Requested By: Roni Schmitz DO Reason for Consult: acute cholecystitis Source of Information: family, old records Exam Limitations: unable to give history, dementia History of Present Illness: Mr Gannon is an 86 year old woman w/ a PMHx of dementia, HTN, HLD, s/p left masectomy remotely likely 2007 however unknown of surgical type/chemo/radiation, recent admission to 12/06-12/10 for the management of acute kidney injury and urinary tract infection and was discharged to [facility] who was brought to the ER w/ a chief concern of abdominal discomfort and fever. The history is unclear, about the chronology of events or symptoms. As per the respiratory care assistant at [facility], who reported that Ms Gannon reported fatigue and increasing weakness x 2 days. She was found to have right upper quadrant abdominal pain and fever 100.3 x 1 day. No nausea, vomiting, diarrhea. decreased po intake. No change in mentation. No chest pain, shortness of breath or palpitations. At the time of admission to surgical service, she was found to be febrile Tmax 100.8, pulse rate 65, respiration at 20, blood pressure 139/64. Also found to have leukocytosis WBC- 17) with 87.4 granulocytes), abnormal renal function (BUN 34, creatinine 1.6), abdominal ultrasound revealed gallbladder wall thickening and tenderness in the area of the gallbladder upon sonography is concerning for acute cholecystitis, with normal liver chemistries. Blood cultures revealed growth of gram-negative rods. Given her dementia, decreased by mouth intake, the decision was made by the surgical team to place an IR guided for perc-sharon tube instead of laparoscopic cholecystectomy. Medical team was consulted, for comanagement. Allergies/Medications Allergies: Coded Allergies: No Known Allergies (12/06/17) Home Med List: Acetaminophen 325 MG TABLET 2 TAB PO Q4H PRN PAIN/TEMP>101 (Reported) Amlodipine Besylate 5 MG TABLET 1 TAB PO QPM HEART (Reported) Atenolol 25 MG TABLET 1 TAB PO DAILY HEART (Reported) Bisacodyl (Dulcolax) 10 MG SUPP.RECT 1 SUP RC AD PRN CONSTIPATION (Reported) Cholecalciferol (Vitamin D3) (Vitamin D-3) 2,000 UNIT CAPSULE 1 CAP PO DAILY VITAMIN SUPPORT (Reported) Dronabinol (Marinol) 2.5 MG CAPSULE 1 CAP PO QHS POOR APPETITE (Reported) Lactose-Reduced Food (Nutritional Shake) 237 ML LIQUID 120 ML PO TID NUTRITIONAL SUPPLEMENT (Reported) Losartan Potassium (Cozaar) 50 MG TABLET 1 TAB PO DAILY HEART (Reported) Lovastatin 40 MG TABLET 2 TAB PO DAILY CHOLESTEROL (Reported) with food Magnesium Hydroxide (Milk Of Magnesia) 400 MG/5 ML ORAL.SUSP 30 ML PO AD PRN CONSTIPATION (Reported) Na Phos,M-B/Na Phos,Di-Ba (Fleet Enema) 19 GRAM-7 GRAM/118 ML ENEMA 1 E RC AD PRN CONSTIPATION (Reported) Tramadol HCl 50 MG TABLET 1 TAB PO DAILY NEEDED PRN PAIN (Reported) Tramadol HCl 50 MG TABLET 1 TAB PO DAILY PAIN (Reported) Review of Systems Review of Systems Constitutional: Reports: see HPI. EENTM: Denies: double vision. Cardiovascular: Denies: chest pain, palpitations. Respiratory: Denies: cough, short of breath. GI: Reports: abdominal pain. Denies: diarrhea. Genitourinary: Denies: dysuria. Musculoskeletal: Denies: back pain. Skin: Denies: change in skin color. Neurological/Psychological: Denies: depressed. Past History Travel History Traveled to [place] past 21 day No Medical History Blood Transfusion Hx: No Neurological: dementia EENT: NONE Cardiovascular: hypertension, hyperlipidemia Respiratory: NONE Gastrointestinal: NONE Hepatic: NONE Renal: chronic kidney disease Musculoskeletal: NONE Psychiatric: NONE Endocrine: NONE Blood Disorders: NONE ECONOMIC DEVELOPMENT COORDINATOR/Reproductive: NONE Surgical History Surgical History: 1 Family History Relations & Conditions If Any: Relation not specified for: *No pertinent family history Psychosocial History Where Do You Live? Acute [facility] Primary Language: Trinidadian Smoking Status: Never Smoked Functional Ability Ambulation: walker Exam & Diagnostic Data Last 24 Hrs of Vital Signs/I&O Vital Signs Date Time Temp Pulse Resp B/P B/P Pulse O2 O2 Flow FiO2 Mean Ox Delivery Rate 12/23 0546 99.1 65 20 144/66 96 12/23 0000 Nasal 2.0L Cannula 12/228 53 119/50 12/22 2301 98.1 53 18 119/50 96 Nasal 2.0L Cannula 12/224 96 Nasal 2.0L Cannula 12/221 97.8 77 18 113/56 97 Nasal 2.0L Cannula 12/22 2006 99.1 69 18 117/56 93 Nasal 2.0L Cannula 12/22 1906 100.8 12/22 1723 100.8 74 20 124/58 95 Room Air 12/22 1522 100.5 84 20 139/64 94 Room Air Intake & Output 12/23 1600 12/23 0800 08 0000 Intake Total 800 1000 Output Total 550 Balance 250 1000 Intake, IV 800 1000 Output, Urine 550 Patient 153 lb Weight Weight Bed scale Measurement Method Physical Exam General Appearance: well developed/nourished, no apparent distress, alert, awake , comfortable Head: atraumatic, normal appearance Eyes: Bilateral: PERRL, EOMI, pale conjunctivae. Ears, Nose, Throat: normal pharynx, normal ENT inspection Neck: normal inspection, supple, full range of motion Respiratory: normal breath sounds Cardiovascular: regular rate/rhythm Peripheral Pulses: 3+ carotid (R), 3+ carotid (L), 3+ brachial (R), 3+ brachial (L), 3+ radial (R), 3+ radial (L) Gastrointestinal: normal bowel sounds, soft, non-tender, tenderness, right upper quadrant Back: normal inspection, normal range of motion Extremities: normal inspection Neurologic/Psych: no motor/sensory deficits, awake, alert Cranial Nerves: normal hearing, normal speech Reflexes: 3+: knee (R), knee (L). Skin: intact, normal color, warm/dry Last 24 Hrs of Labs/Bret: Laboratory Tests 12/23/17 0718: Sodium Pending, Potassium Pending, Chloride Pending, Carbon Dioxide Pending, Anion Gap Pending, BUN Pending, Creatinine Pending, BUN/Creatinine Ratio Pending , CBC w Diff Pending, WBC Pending, RBC Pending, Hgb Pending, Hct Pending, MCV Pending, MCH Pending, MCHC Pending, RDW Pending, Plt Count Pending, MPV Pending 12/22/17 1822: Lactic Acid Cancelled 12/22/17 1653: Anion Gap 8, Estimated GFR 31 L, BUN/Creatinine Ratio 21.3, Glucose 113 H, Lactic Acid 1.2, Calcium 9.4, Total Bilirubin 0.7, AST 22, ALT 23, Alkaline Phosphatase 80, Troponin I 0.02, Total Protein 6.5, Albumin 3.1 L, Globulin 3.4 , Albumin/Globulin Ratio 0.9 L, Amylase 39, Lipase 26, PT 13.1 H, INR 1.20 H, APTT 29, CBC w Diff MAN DIFF ORDERED, RBC 3.74 L, MCV 91.4, MCH 30.4, MCHC 33.3 , RDW 13.9, MPV 9.9, Gran % 87.4 H, Lymphocytes % 6.8 L, Monocytes % 5.0, Eosinophils % 0, Basophils % 0.8, Absolute Granulocytes 14.8 H, Segmented Neutrophils 89 H, Band Neutrophils 2, Absolute Lymphocytes 1.1 L, Lymphocytes 6 L, Monocytes 3, Absolute Monocytes 0.8 H, Absolute Eosinophils 0, Absolute Basophils 0.1, Platelet Estimate ADEQUATE, Normocytic RBCs VERIFIED, Normochromic RBCs VERIFIED, Fld Total RBCs Counted 100 Assessment/Plan Assessment/Plan Mr Gannon is an 86 year old woman w/ a PMHx of dementia, HTN, HLD, s/p left masectomy remotely likely 2007 however unknown of surgical type/chemo/radiation, recent admission to 12/06-12/10 for the management of acute kidney injury and urinary tract infection and was discharged to [facility] who was brought to the ER w/ a chief concern of abdominal discomfort and fever likey secondary to acute cholecystitis probably from cholelithiasis. She was found to be febrile of admission, and has sonographic e/o acute cholecystits w/ leucocytosis and normal liver chemistries. Given her poor po intake, and dementia the surgical team favored IR guided perc-sharon isntead of surgery under general anesthesia, which is reasonable at this time. She also has e/o GNR+GPC bactermia for which she is on Unasyn for covering typical GI microbes, which should be continued pending culture results. There is no need for any vancomycin at this time. At this time, BP is stable, and doesnt have tachycardia likely secondary to beta-gurpreet use which should be continued to avoid any rebound tachycardia. Given low threshold for escalating care, which is increasing coverage for abx to ceftaz, or aggressive fluid resuscitation for the tx of of sepsis. She should be monitored for any fever, and elevated liver chemistries. Acute cholangitis should be kept in differential always. Pertinent lab findings: WBC 17(8)-->14 Hb 11.4(8/)-->10.4 Na 137, K 4.5 Cl 102(8/)-->108(8/6) BUN 34(8/)-->32(8/6) Sr Cr 1.6(8/)-->1.3(8/) Albumin 3.1, INR 1.2. Lactate 1.2 Blood culture 12/23 positive for GNR, GPCs in pairs. No recent Echocardiogram. EKG 12/517 revealed LAD, no STTWI. Imaging: US abdomen- 12/22/17- Cholelithiasis. Gallbladder wall thickening and tenderness in the area of the gallbladder upon sonography is concerning for acute cholecystitis. No dilatation of the common bile duct. Borderline prominence of left intrahepatic biliary ducts. A 1.2 cm pancreatic tail cyst without convincing suspicious features. Problem list: 1. Acute cholecystitis, r/o cholangitis. 2. h/o Pancreatic tail cyst 3. h/o dementia 4. h/o HTN 5. 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 GNR+GPC bacteremia w/o e/o sepsis at this time. Plan: 1. Recommend continuing conservative management as per surgical team. IR will be contacted by the surgical team. NPO for now. Continue Ampi/Sulbactam for GNRs, and GPCs. No vanc at this time. Recheck blood cultures. 2. Recommend close monitoring of blood pressure. Continue atenolol and amlodipine. Please restart losartan after checking renal function. 3. If the pt has any indication of sepsis such as tachycardia, fever would check lactate and hydrate her adequately. 4. Continue gentle hydration for now. 5. Check labs daily including CBC, BEP, LFTs. 6. She is DNR/DNI as per the documents and her son. 7. Please restart anti-lipidemic drugs after the procedure. 8. Please send the cultures from the perc-sharon drainage. It is not going to be sterile, but will aid in guide us therapy in the future. A request was made by the surgical team to transfer the pt to the medical [facility] , which will be done after discussing with the attending. Problem List: 1. Hyperlipidemia 2. HTN (hypertension) 3. Dementia 4. Cholecystitis Consult Acknowledgment - Thank you for your consult request. Wallace MOORE,Preethi 12/23/17 1402: Assessment/Plan Consult Acknowledgment - Thank you for your consult request. Attending MD Review Statement Attending Statement Attending MD Statement: examined this patient, discuss w/resident/PA/PATTERN FINISHER, agreed w/resident/PA/PATTERN FINISHER, reviewed EMR data (avail), discussed with nursing, discussed with case mgmt, reviewed images, amended to note Attending Assessment/Plan: Patient seen and examined, still feeling somewhat uncomfortable. She was complaining of pain in the right upper quadrant. She denies any vomiting. She was slightly nauseous. Patient scheduled to go to IR for cholecystostomy tube. Continue antibiotics for now. Continue IV fluids. Please follow-up on the final cultures. Continue all other current Mx. Pt NPO for now, can likely stry ice chips after the procedure if remains stable. ice chips after the procedure if remains stable.
[2017-12-23 08:17] LABS: ABSOLUTE BASOPHIL COUNT 0 /CUMM (0.0-0.2); ABSOLUTE EOSINOPHIL COUNT 0 /CUMM (0.0-0.7); ABSOLUTE GRANULOCYTE CT 12.4 /CUMM (1.4-6.5); ABSOLUTE MONOCYTE COUNT 0.6 /CUMM (0.10-0.60); BASOPHIL % 0.2 % (0.0-2.0); EOSINOPHIL % 0.1 % (0-5); HEMATOCRIT 31.7 % (37-47); MEAN CORPUSCULAR HGB 30.1 PG (27.0-31.0); MEAN CORPUSCULAR HGB CONC 32.9 G/DL (33.0-37.0); MEAN CORPUSCULAR VOLUME 91.8 FL (81.0-99.0); MEAN PLATELET VOLUME 11.9 FL (7.4-10.4); PLATELET COUNT 200 /CUMM (130-400); RBC DISTRIBUTION WIDTH 14.6 % (11.5-14.5); RED BLOOD CELL CT 3.45 /CUMM (4.20-5.40)
[2017-12-23 08:57] LABS: GRANULOCYTE % 88.8 % (42.2-75.2)
[2017-12-23 14:33] VITALS: BP 118/58
--- NOTE | 2017-12-23 16:31 | ULTRASOUND REPORT ---
CLINICAL HISTORY: 86-year-old female with imaging and physical examination findings consistent with acute cholecystitis. The patient is a poor surgical candidate and therefore request was made for cholecystostomy tube placement. PROCEDURES: 1. Limited sonogram of the right upper abdominal quadrant. 2. Placement of an 8.5 Fr locking all-purpose drainage catheter into the gallbladder. PHYSICIAN: Wilmar Chavez M.D. MONITORING: The procedure was performed with conscious sedation and analgesia under my direct supervision. Continuous blood pressure, pulse oximetry as well as heartrate monitoring was performed by an independent registered nurse. Physician intraservice sedation time was 10 minutes. MEDICATIONS: 1. 0.5 mg of Versed and 25 micrograms of fentanyl were administered. 2. 8 mL of 1% lidocaine SQ. COMPLICATIONS: [<None>] ESTIMATED BLOOD LOSS: < 5 mL SPECIMENS: Culture CONTRAST: None required PROCEDURE DETAILS: Informed consent was obtained from the patient's son prior to the procedure. During this process, the procedure and potential alternatives were explained along with the intended outcome and benefits. The risks of the procedure, including the possibility of an unsuccessful procedure, as well as the risk of not doing the procedure, were discussed. The patient's son was given the opportunity to ask questions regarding the procedure. A consent form documenting this discussion was placed in the medical record. The patient was brought to the procedure room and placed supine on the fluoroscopy table. A time out was performed. Prior to prepping the patient, a limited sonogram of the right upper quadrant was performed to localize the gallbladder and chose an appropriate access. The right upper abdomen was prepped and draped in usual sterile fashion. The skin and subcutaneous tissues were anesthetized with Lidocaine. Under direct ultrasound guidance, an 8.5 Latvian Dawkins-Wadsworth catheter was advanced trocar style via a transhepatic route into the gallbladder. Once the tip was within the gallbladder lumen, the metal trocar was stabilized and the plastic catheter advanced further into the gallbladder. The metal trocar was removed and the distal pigtail was formed and locked into place. The drain was sutured to skin with 2-0 silk suture. A StatLock and sterile dressing were placed. Bile sample sent for culture. FINDINGS: 1. Mildly distended gallbladder with gallbladder wall thickening and gallstones. Pericholecystic fluid and edema within the gallbladder wall were also noted. 2. Aspiration of thin brown fluid. 3. Placement of 8.5 Latvian pigtail catheter. IMPRESSION: Successful placement of an 8.5 Fr cholecystostomy catheter. PLAN: -The patient was stable after the procedure and was transferred back to the floor with verbal and written instructions. -The tube should be open to external gravity drainage via drainage bag. -The tube should be flushed twice daily with 10 mL normal saline. -The drain needs to remain in place for at least 6 weeks to give time for the tract to mature.
[2017-12-23 22:18] VITALS: BP 104/60
--- NOTE | 2017-12-24 06:16 | Event Note ---
Event Note Event Note: S: Paged by nursing staff for patient with HR of 48, asymptomatic without complaints B: Mrs Gannon is currently s/p placement of perc-sharon tube for acute cholecystitis. She also has Gram negative della and Gram positive paired cocci bacteremia, awaiting final ID. She is on Unasyn for antibiotic coverage. A: Without complaints. Heart without murmurs; rate auscultated correlated at the radials 44; stat EKG showed a rate of 47, no significant ST segment abnormalaties unchanged from previous EKG besides rate. Pressure 100s/60s. A/ Ox3. Continues to deny complaints, states she just wants to sleep. At baseline mentation per nursing staff and previous interactions with patient. R: Hold 9am Atenolol. Continues to be bradycardic; will transfer to telemetry. Add on calcium, magnesium, electrolytes, thyroid tests to AM labs.
[2017-12-24 06:29] VITALS: BP 108/62
--- NOTE | 2017-12-24 07:29 | PN- Housestaff ---
JulesBessemer 12/24/17 0729: Subjective Follow-up For: Acute cholecystitis Gram-negative rods and gram-positive cocci bacteremia. Tele-Events Since Last Visit: Patient had low heart rate last night in her 50s although she remained hemodynamically stable. Overnight patient remained in sinus bradycardia. Subjective: Patient remained afebrile overnight. Seen and examined this morning. Patient denied chest pain, palpitation, nausea, vomiting, chills, fever, abdominal pain and dysuria. She had percutaneous cholecystostomy tube yesterday. The tube is draining bile. Her drain had one 150 mL bile. Patient is in ICU as telemetry hold. Patient was on 2 L of oxygen and maintaining saturation 98%. We will wean it off today. Review of Systems Constitutional: Denies: chills, fever, weakness. EENTM: Reports: no symptoms. Cardiovascular: Denies: chest pain, palpitations, syncope. Respiratory: Denies: cough, short of breath, wheezing. Gastrointestinal: Denies: abdominal pain, constipation, diarrhea, nausea, vomiting. Genitourinary: Reports: no symptoms. Musculoskeletal: Reports: no symptoms. Neurological/Psychological: Reports: no symptoms. Objective Last 24 Hrs of Vital Signs/I&O Vital Signs Date Time Temp Pulse Resp B/P B/P Pulse O2 O2 Flow FiO2 Mean Ox Delivery Rate 12/25 799 97.6 49 20 140/62 95 Room Air 12/24 0800 95 Room Air 12/24 0629 98.0 48 20 108/62 98 Nasal 2.0L Cannula 12/24 0000 96 Nasal 2.0L Cannula 12/23 2220 98.6 12/23 2218 99.4 53 18 104/60 96 Nasal Cannula 12/23 2053 55 118/54 12/23 1433 99.1 57 18 118/58 96 / 1048 Nasal 2.0L Cannula Intake & Output 12/24 1600 12/24 0800 12/24 0000 Intake Total 920 400 Output Total 600 150 Balance 320 250 Intake, IV 800 400 Intake, Oral 120 Number 0 Bowel Movements Output, 150 150 Drainage Output, Urine 450 Physical Exam General Appearance: Alert, Cooperative Skin: No Rashes Skin Temp/Moisture Exam: Warm/Dry Sepsis Skin Exam (color): Normal for Ethnicity HEENT: Atraumatic, PERRLA, EOMI Neck: Supple Cardiovascular: Normal S1, Normal S2 Lungs: Clear to Auscultation Abdomen: Soft, No Tenderness Neurological: Normal Speech, Normal Tone, Dementia Extremities: No Edema Assessment/Plan Assessment: 86 year old woman w/ a PMHx of dementia, HTN, HLD, CKD stage III, s/p left masectomy remotely likely 2007 however unknown of surgical type/chemo/radiation, recent admission to 12/06-12/10 for the management of acute kidney injury and urinary tract infection and was discharged to [email or web address] who was brought to the ER w/ a chief concern of abdominal discomfort and fever likey secondary to acute cholecystitis from cholelithiasis. We are seeing the patient for acute cholecystitis. Acute cholecystitis s/p cholecystostomy tube: -Due to cholelithiasis induced. Patient is meeting SIRS criteria as she is afebrile without tachycardia although she is on beta blockers. -Continue Unasyn day 3 -Cholecystostomy tube was placed yesterday as patient was not candidate for surgery. Her cholecystostomy tube draining 150 mL bile. -Patient is on clear liquid diet and she is tolerating it. -Follow-up surgery recommendations. -Follow up bile culture report. -Patient can get interval cholecystectomy after she is stabilized and if she is fit for surgery. Bacteremia: -Patient has gram-negative rods and enterococcus in blood. -Continue Unasyn day 3 -Keep an eye on patient for any signs of sepsis or cholangitis. If patient develops sepsis maybe he would need to broaden her antibiotic coverage and she needs aggressive IV fluids. -We will follow final blood cultures. -We will monitor her WBC count. Sinus bradycardia: -Patient had sinus bradycardia last night possibly due to increased vagal tone after GI procedure or precepitated beta gurpreet and she was transferred to telemetry for close monitoring for any blocks or ischemia. -Patient's beta gurpreet was held last night. TSH is 1.26 -Follow up cardiology recommendations. 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 -There is a 2.4 cm cyst in the lower pole the right kidney without convincing suspicious features. -Cardiology recommended sonographic surveillance. Patient will follow GI or primary care physician as outpatient. History of hypertension hyperlipidemia: -Continue her losartan and amlodipine -Holding her atenolol due to sinus bradycardia. -Continue her lipid-lowering medications. History of dementia: -Not on any medications. History of chronic kidney disease: -Patient has stage III chronic kidney disease. -GFR and creatinine is at baseline. -We will keep monitoring her creatinine BUN. DVT prophylaxis: Mechanical and subcutaneous heparin CODE STATUS: DNI/DNR Problem List: 1. Acute cholecystitis 2. Bacteremia Pain Ratin Pain Location: none Pain Goal: Remain pain free Pain Plan: pain pathway Tomorrow's Labs & Rationales: cbc/icu bundle Preethi Gonsalez MD 12/24/17 1159: Attending MD Review Statement Attending Statement Attending MD Statement: examined this patient, discuss w/resident/PA/WHEAT GROWER, agreed w/resident/PA/WHEAT GROWER, reviewed EMR data (avail), discussed with nursing, discussed with case mgmt, reviewed images, amended to note Attending Assessment/Plan: Patient seen and examined, feels ok. S/P Cholecystomy tube yesterday. Transferred to ICU as tele hold with bradycardia. Vital Signs Date Time Temp Pulse Resp B/P B/P Pulse O2 O2 Flow FiO2 Mean Ox Delivery Rate 12/24 1126 54 142/64 12/24 08 97.6 49 20 140/62 95 Room Air 12/24 0800 95 Room Air 12/24 0629 98.0 48 20 108/62 98 Nasal 2.0L Cannula 12/24 0000 96 Nasal 2.0L Cannula 12/23 2220 98.6 12/23 2218 99.4 53 18 104/60 96 Nasal Cannula 12/23 2053 55 118/54 12/23 1433 99.1 57 18 118/58 96 on exam; aox3, nad. cv; s1,s2, rrr resp; clear abd; soft, nt, bs+, + cholcystostomy tube. ext; no edema Microbiology Date/Time Procedure - Status Source Growth 12/24 699 Surveillance Culture - RECD UPPER RESP 12/24 699 Surveillance Culture - RECD GI 12/23 2150 Blood Culture - RECD BLOOD 12/23 2124 Blood Culture - RECD BLOOD 12/23 1428 Body Fluid Culture - RES BODY FLUID GRAM NEGATIVE RODS ENTEROCOCCUS 12/23 1428 Gram Stain - RES BODY FLUID Laboratory Tests 12/24 12/24 0750 0600 Chemistry Sodium (137 - 145 mmol/L) 141 Potassium (3.5 - 5.1 mmol/L) 3.9 Chloride (98 - 107 mmol/L) 111 H Carbon Dioxide (22 - 30 mmol/L) 23 Anion Gap (5 - 16) 7 BUN (7 - 17 mg/dL) 25 H Creatinine (0.5 - 1.0 mg/dL) 1.2 H Estimated GFR (>60 ml/min) 43 L BUN/Creatinine Ratio (7 - 25 %) 20.8 Calcium (8.4 - 10.2 mg/dL) 8.3 L Cancelled Magnesium (1.6 - 2.3 mg/dL) 2.3 Cancelled Total Bilirubin (0.2 - 1.3 mg/dL) 0.2 Direct Bilirubin (< 0.4 mg/dL) 0.2 AST (14 - 36 U/L) 12 L ALT (9 - 52 U/L) 24 Alkaline Phosphatase (<127 U/L) 75 Total Protein (6.3 - 8.2 g/dL) 5.2 L Albumin (3.5 - 5.0 g/dL) 2.3 L TSH (0.270 - 4.200 uIU/mL) 1.260 Cancelled Hematology CBC w Diff NO MAN DIFF REQ WBC (4.8 - 10.8 /CUMM) 7.3 RBC (4.20 - 5.40 /CUMM) 3.30 L Hgb (12.0 - 16.0 G/DL) 10.0 L Hct (37 - 47 %) 30.1 L MCV (81.0 - 99.0 FL) 91.2 MCH (27.0 - 31.0 PG) 30.3 MCHC (33.0 - 37.0 G/DL) 33.2 RDW (11.5 - 14.5 %) 14.3 Plt Count (130 - 400 /CUMM) 179 MPV (7.4 - 10.4 FL) 12.2 H Gran % (42.2 - 75.2 %) 74.5 Lymphocytes % (20.5 - 51.1 %) 16.9 L Monocytes % (1.7 - 9.3 %) 6.1 Eosinophils % (0 - 5 %) 1.3 Basophils % (0.0 - 2.0 %) 1.2 Absolute Granulocytes (1.4 - 6.5 /CUMM) 5.4 Absolute Lymphocytes (1.2 - 3.4 /CUMM) 1.2 Absolute Monocytes (0.10 - 0.60 /CUMM) 0.4 Absolute Eosinophils (0.0 - 0.7 /CUMM) 0.1 Absolute Basophils (0.0 - 0.2 /CUMM) 0.1 A/P: 86 y/o F with pmh sig dementia, HTN, HLD, s/p left masectomy remotely, CKD stage 3. admitted with abd pain, acute cholecystitis s/p cholecystostomy tube placement by IR yesterday. Transferred to ICU as tele hold with bradycardia and found to have sinus bradycardia. Will advance diet to full liq as patient seemed to be doing well. Continue antibiotics. If patient able to tolerate diet then stop the IV fluids. Appreciate cardiology input. Keep holding Beta-gurpreet. TSH wnl. Continue on tele for now. DVT px; He psq.
[2017-12-24 08:00] VITALS: BP 140/62
[2017-12-24 10:02] LABS: ABSOLUTE BASOPHIL COUNT 0.1 /CUMM (0.0-0.2); ABSOLUTE EOSINOPHIL COUNT 0.1 /CUMM (0.0-0.7); ABSOLUTE GRANULOCYTE CT 5.4 /CUMM (1.4-6.5); ABSOLUTE LYMPH COUNT 1.2 /CUMM (1.2-3.4); ABSOLUTE MONOCYTE COUNT 0.4 /CUMM (0.10-0.60); BASOPHIL % 1.2 % (0.0-2.0); EOSINOPHIL % 1.3 % (0-5); GRANULOCYTE % 74.5 % (42.2-75.2); HEMATOCRIT 30.1 % (37-47); MEAN CORPUSCULAR HGB 30.3 PG (27.0-31.0); MEAN CORPUSCULAR HGB CONC 33.2 G/DL (33.0-37.0); MEAN CORPUSCULAR VOLUME 91.2 FL (81.0-99.0); MEAN PLATELET VOLUME 12.2 FL (7.4-10.4); PLATELET COUNT 179 /CUMM (130-400); RBC DISTRIBUTION WIDTH 14.3 % (11.5-14.5); WHITE BLOOD CELL COUNT 7.3 /CUMM (4.8-10.8)
--- NOTE | 2017-12-24 11:29 | Cons- Cardiology ---
General Information and HPI Consulting Request Date of Consult: 12/24/17 Requested By: Preethi Gonsalez MD Reason for Consult: bradycardia Source of Information: patient, old records, ICU physician Exam Limitations: patient's age, dementia History of Present Illness: 86-year-old female past medical history hypertension, hyperlipidemia, CKD, dementia brought to ED from [facility]. Patient was subsequently diagnosed with cholecystitis, now status post cholecystostomy. Cardiology consult called for bradycardia. Patient is a poor historian as per history she has some dementia, however she denies current lightheadedness/dizziness, chest pain, palpitations, dyspnea. Patient denies any lightheadedness or dyspnea in the past as well. Allergies/Medications Allergies: Coded Allergies: No Known Allergies (12/06/17) Home Med List: Acetaminophen 325 MG TABLET 2 TAB PO Q4H PRN PAIN/TEMP>101 (Reported) Amlodipine Besylate 5 MG TABLET 1 TAB PO QPM HEART (Reported) Atenolol 25 MG TABLET 1 TAB PO DAILY HEART (Reported) Bisacodyl (Dulcolax) 10 MG SUPP.RECT 1 SUP RC AD PRN CONSTIPATION (Reported) Cholecalciferol (Vitamin D3) (Vitamin D-3) 2,000 UNIT CAPSULE 1 CAP PO DAILY VITAMIN SUPPORT (Reported) Dronabinol (Marinol) 2.5 MG CAPSULE 1 CAP PO QHS POOR APPETITE (Reported) Lactose-Reduced Food (Nutritional Shake) 237 ML LIQUID 120 ML PO TID NUTRITIONAL SUPPLEMENT (Reported) Losartan Potassium (Cozaar) 50 MG TABLET 1 TAB PO DAILY HEART (Reported) Lovastatin 40 MG TABLET 2 TAB PO DAILY CHOLESTEROL (Reported) with food Magnesium Hydroxide (Milk Of Magnesia) 400 MG/5 ML ORAL.SUSP 30 ML PO AD PRN CONSTIPATION (Reported) Na Phos,M-B/Na Phos,Di-Ba (Fleet Enema) 19 GRAM-7 GRAM/118 ML ENEMA 1 E RC AD PRN CONSTIPATION (Reported) Tramadol HCl 50 MG TABLET 1 TAB PO DAILY NEEDED PRN PAIN (Reported) Tramadol HCl 50 MG TABLET 1 TAB PO DAILY PAIN (Reported) Current Medications: Current Medications Sig/Zoie Start time Last Medication Dose Route Stop Time Status Admin Acetaminophen 0 .STK-MED ONE 12/24 2047 DC IV Acetaminophen 650 MG Q4P PRN 12/23 1630 AC PO Acetaminophen 1,000 MG Q6P PRN 12/22 2014 12/23 N/A 1 UNIT IV 2053 Amlodipine Besylate 5 MG QPM 12/22 2099 AC PO Ampicillin Sodium/ 1,500 MG Q12H 12/22 2330 AC 12/23 Sulbactam Sodium IV 2317 Sodium Chloride 100 ML Atenolol 25 MG DAILY 12/23 09 DC 12/23 PO 0940 Atorvastatin Calcium 10 MG 1700 12/24 1700 AC PO Dextrose/Sodium 1,000 ML .Q10H 12/22 2014 12/24 Chloride IV 0850 Fentanyl Citrate 0 .STK-MED ONE 12/23 1406 DC .ROUTE Heparin Sodium 5,000 UNIT Q8 12/22 2200 AC 12/24 (Porcine) SC 0558 Insulin Aspart 0 TIDAC 12/25 799 CAN SC Insulin Detemir 19 UNITS BID 12/24 899 CAN SC Lidocaine 1 ML .STK-MED ONE 12/23 1451 DC ID 12/23 1452 Losartan Potassium 50 MG DAILY 12/23 899 12/23 PO 0940 Midazolam HCl 0 .STK-MED ONE 12/23 1406 DC .ROUTE Morphine Sulfate 0 .STK-MED ONE 12/23 1837 DC .ROUTE Morphine Sulfate 2 MG Q4P PRN 12/23 1645 AC 12/23 IV 1841 Ondansetron HCl 4 MG Q6-PRN PRN 12/22 2014 IV Patient Medication 1 ED ONE ONE 12/23 1215 DC 12/23 Teaching ED 12/23 1216 1401 Review of Systems Review of Systems: As per HPI. The rest of a 10 point review of systems was negative. 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 Acute Rehab Primary Language: Croatian Smoking Status: Never Smoked Functional Ability Ambulation: walker Exam & Diagnostic Data Vital Signs and I&O Vital Signs Date Time Temp Pulse Resp B/P B/P Pulse O2 O2 Flow FiO2 Mean Ox Delivery Rate 08/07 0800 97.6 49 20 140/62 95 Room Air 12/24 0800 95 Room Air 12/24 06 98.0 48 20 108/62 98 Nasal 2.0L Cannula 12/24 0000 96 Nasal 2.0L Cannula 12/24 2219 98.6 12/238 99.4 53 18 104/60 96 Nasal Cannula 12/23 2053 55 118/54 12/23 1433 99.1 57 18 118/58 96 Intake & Output 12/24 0000 12/23 0000 Intake Total 920 400 527 823 0166 Output Total 600 150 600 550 Balance 320 250 053 388 7767 Intake, IV 800 400 136 099 5152 Intake, Oral 120 Number 0 Bowel Movements Output, 150 150 Drainage Output, Urine 450 600 550 Patient 69.4 kg Weight Weight Bed scale Measurement Method Physical Exam: General: Elderly lady, lying in bed no apparent distress HEENT: NCAT, NO JVD, no carotid bruit Heart: s1s2, RRR, no MRG Lungs: CTA b/l Abd: soft, nt Ext: no peripheral edema Labs/Bret Results: Laboratory Tests 12/24 12/24 0750 0600 Chemistry Sodium (137 - 145 mmol/L) 141 Potassium (3.5 - 5.1 mmol/L) 3.9 Chloride (98 - 107 mmol/L) 111 H Carbon Dioxide (22 - 30 mmol/L) 23 Anion Gap (5 - 16) 7 BUN (7 - 17 mg/dL) 25 H Creatinine (0.5 - 1.0 mg/dL) 1.2 H Estimated GFR (>60 ml/min) 43 L BUN/Creatinine Ratio (7 - 25 %) 20.8 Calcium (8.4 - 10.2 mg/dL) 8.3 L Cancelled Magnesium (1.6 - 2.3 mg/dL) 2.3 Cancelled Total Bilirubin (0.2 - 1.3 mg/dL) 0.2 Direct Bilirubin (< 0.4 mg/dL) 0.2 AST (14 - 36 U/L) 12 L ALT (9 - 52 U/L) 24 Alkaline Phosphatase (<127 U/L) 75 Total Protein (6.3 - 8.2 g/dL) 5.2 L Albumin (3.5 - 5.0 g/dL) 2.3 L TSH (0.270 - 4.200 uIU/mL) 1.260 Cancelled Hematology CBC w Diff NO MAN DIFF REQ WBC (4.8 - 10.8 /CUMM) 7.3 RBC (4.20 - 5.40 /CUMM) 3.30 L Hgb (12.0 - 16.0 G/DL) 10.0 L Hct (37 - 47 %) 30.1 L MCV (81.0 - 99.0 FL) 91.2 MCH (27.0 - 31.0 PG) 30.3 MCHC (33.0 - 37.0 G/DL) 33.2 RDW (11.5 - 14.5 %) 14.3 Plt Count (130 - 400 /CUMM) 179 MPV (7.4 - 10.4 FL) 12.2 H Gran % (42.2 - 75.2 %) 74.5 Lymphocytes % (20.5 - 51.1 %) 16.9 L Monocytes % (1.7 - 9.3 %) 6.1 Eosinophils % (0 - 5 %) 1.3 Basophils % (0.0 - 2.0 %) 1.2 Absolute Granulocytes (1.4 - 6.5 /CUMM) 5.4 Absolute Lymphocytes (1.2 - 3.4 /CUMM) 1.2 Absolute Monocytes (0.10 - 0.60 /CUMM) 0.4 Absolute Eosinophils (0.0 - 0.7 /CUMM) 0.1 Absolute Basophils (0.0 - 0.2 /CUMM) 0.1 12/23 12/22 0718 1822 Chemistry Sodium (137 - 145 mmol/L) 139 Potassium (3.5 - 5.1 mmol/L) 4.2 Chloride (98 - 107 mmol/L) 108 H Carbon Dioxide (22 - 30 mmol/L) 24 Anion Gap (5 - 16) 8 BUN (7 - 17 mg/dL) 32 H Creatinine (0.5 - 1.0 mg/dL) 1.3 H Estimated GFR (>60 ml/min) 39 L BUN/Creatinine Ratio (7 - 25 %) 24.6 Lactic Acid Cancelled Hematology CBC w Diff NO MAN DIFF REQ WBC (4.8 - 10.8 /CUMM) 14.0 H RBC (4.20 - 5.40 /CUMM) 3.45 L Hgb (12.0 - 16.0 G/DL) 10.4 L Hct (37 - 47 %) 31.7 L MCV (81.0 - 99.0 FL) 91.8 MCH (27.0 - 31.0 PG) 30.1 MCHC (33.0 - 37.0 G/DL) 32.9 L RDW (11.5 - 14.5 %) 14.6 H Plt Count (130 - 400 /CUMM) 200 MPV (7.4 - 10.4 FL) 11.9 H Gran % (42.2 - 75.2 %) 88.8 H Lymphocytes % (20.5 - 51.1 %) 6.9 L Monocytes % (1.7 - 9.3 %) 4.0 Eosinophils % (0 - 5 %) 0.1 Basophils % (0.0 - 2.0 %) 0.2 Absolute Granulocytes (1.4 - 6.5 /CUMM) 12.4 H Absolute Lymphocytes (1.2 - 3.4 /CUMM) 1.0 L Absolute Monocytes (0.10 - 0.60 /CUMM) 0.6 Absolute Eosinophils (0.0 - 0.7 /CUMM) 0 Absolute Basophils (0.0 - 0.2 /CUMM) 0 08/05 1653 Chemistry Sodium (137 - 145 mmol/L) 137 Potassium (3.5 - 5.1 mmol/L) 4.5 Chloride (98 - 107 mmol/L) 102 Carbon Dioxide (22 - 30 mmol/L) 26 Anion Gap (5 - 16) 8 BUN (7 - 17 mg/dL) 34 H Creatinine (0.5 - 1.0 mg/dL) 1.6 H Estimated GFR (>60 ml/min) 31 L BUN/Creatinine Ratio (7 - 25 %) 21.3 Glucose (65 - 99 mg/dL) 113 H Lactic Acid (0.7 - 2.1 mmol/L) 1.2 Calcium (8.4 - 10.2 mg/dL) 9.4 Total Bilirubin (0.2 - 1.3 mg/dL) 0.7 AST (14 - 36 U/L) 22 ALT (9 - 52 U/L) 23 Alkaline Phosphatase (<127 U/L) 80 Troponin I (< 0.11 ng/ml) 0.02 Total Protein (6.3 - 8.2 g/dL) 6.5 Albumin (3.5 - 5.0 g/dL) 3.1 L Globulin (1.9 - 4.2 gm/dL) 3.4 Albumin/Globulin Ratio (1.1 - 2.2 %) 0.9 L Amylase (30 - 110 U/L) 39 Lipase (23 - 300 U/L) 26 Coagulation PT (9.4 - 12.5 SEC) 13.1 H INR (0.90 - 1.19) 1.20 H APTT (25 - 37 SEC) 29 Hematology CBC w Diff MAN DIFF ORDERED WBC (4.8 - 10.8 /CUMM) 17.0 H RBC (4.20 - 5.40 /CUMM) 3.74 L Hgb (12.0 - 16.0 G/DL) 11.4 L Hct (37 - 47 %) 34.2 L MCV (81.0 - 99.0 FL) 91.4 MCH (27.0 - 31.0 PG) 30.4 MCHC (33.0 - 37.0 G/DL) 33.3 RDW (11.5 - 14.5 %) 13.9 Plt Count (130 - 400 /CUMM) 269 MPV (7.4 - 10.4 FL) 9.9 Gran % (42.2 - 75.2 %) 87.4 H Lymphocytes % (20.5 - 51.1 %) 6.8 L Monocytes % (1.7 - 9.3 %) 5.0 Eosinophils % (0 - 5 %) 0 Basophils % (0.0 - 2.0 %) 0.8 Absolute Granulocytes (1.4 - 6.5 /CUMM) 14.8 H Segmented Neutrophils (42.2 - 75.2 %) 89 H Band Neutrophils (0.0 - 5.0 %) 2 Absolute Lymphocytes (1.2 - 3.4 /CUMM) 1.1 L Lymphocytes (20.5 - 51.1 %) 6 L Monocytes (1.7 - 9.3 %) 3 Absolute Monocytes (0.10 - 0.60 /CUMM) 0.8 H Absolute Eosinophils (0.0 - 0.7 /CUMM) 0 Absolute Basophils (0.0 - 0.2 /CUMM) 0.1 Platelet Estimate (ADEQUATE) ADEQUATE Normocytic RBCs VERIFIED Normochromic RBCs VERIFIED Other Body Source Fld Total RBCs Counted (%) 100 Diagnostic Data EKG Results Personally reviewed Sinus bradycardia 47 bpm, nonspecific T-wave abnormality CXR Results none this admission Other Results Telemetry personally reviewed: Sinus bradycardia as low as 40s bpm; currently in sinus rhythm bradycardic at 55 beats per minute Assessment/Plan Assessment/Plan 1. sinus bradycardia 2. Hypertension 3. Hyper lipidemia 4. Acute cholecystitis status post cholecystostomy 5. Dementia 6. EPI on CKD On review of telemetry and ECG, patient is in sinus bradycardia. This is likely due to the patient being on atenolol, and increased vagal tone due to GI manipulation from cholecystostomy. Patient is asymptomatic, electrolytes are within normal limits, and patient is hemodynamically stable. No indication for any transcutaneous or transvenous pacing at this time. Agree with holding all AV tabitha blockers such as beta-blockers, and diltiazem. Would continue with telemetry. Can obtain routine transthoracic echocardiogram to rule out structural heart disease. Trend electrolytes, ensure K 4-5, Mg>2. Atropine IVP or dopamine drip can be given in the short term if bradycardia worsens and patient becomes symptomatic or hemodynamically unstable. Thank you for the consult. Consult Acknowledgment - Thank you for your consult request.
[2017-12-24 16:00] VITALS: BP 146/70
[2017-12-25] VITALS: BP 120/60
[2017-12-25 04:35] LABS: ABSOLUTE BASOPHIL COUNT 0.2 /CUMM (0.0-0.2); ABSOLUTE EOSINOPHIL COUNT 0.2 /CUMM (0.0-0.7); ABSOLUTE GRANULOCYTE CT 3.6 /CUMM (1.4-6.5); ABSOLUTE LYMPH COUNT 1.5 /CUMM (1.2-3.4); ABSOLUTE MONOCYTE COUNT 0.3 /CUMM (0.10-0.60); BASOPHIL % 2.8 % (0.0-2.0); EOSINOPHIL % 3.3 % (0-5); GRANULOCYTE % 61.4 % (42.2-75.2); HEMATOCRIT 28.7 % (37-47); MEAN CORPUSCULAR HGB 30.2 PG (27.0-31.0); MEAN CORPUSCULAR HGB CONC 33.5 G/DL (33.0-37.0); MEAN CORPUSCULAR VOLUME 90.3 FL (81.0-99.0); MEAN PLATELET VOLUME 10.9 FL (7.4-10.4); PLATELET COUNT 228 /CUMM (130-400); RBC DISTRIBUTION WIDTH 14.2 % (11.5-14.5); RED BLOOD CELL CT 3.18 /CUMM (4.20-5.40); WHITE BLOOD CELL COUNT 5.8 /CUMM (4.8-10.8)
--- NOTE | 2017-12-25 07:01 | PN- Housestaff ---
JulesHolley 12/25/17 0700: Subjective Follow-up For: Acute cholecystitis s/p cholecystostomy tube placement. Gram-negative rods and gram-positive cocci bacteremia. Subjective: No overnight events. Patient remained afebrile. Seen and examined this morning. Patient denied chest pain, palpitation, nausea, vomiting, fever, abdominal pain dysuria. She is tolerating diet and has been advanced to low-fat diet. Her drain contains to 210 mL of bile-stained fluid. Her cholecystostomy tube site doesn't have any signs of infection or inflammation.. Review of Systems Constitutional: Denies: chills, fever. EENTM: Reports: no symptoms. Cardiovascular: Denies: chest pain, orthopena, syncope. Respiratory: Denies: cough, short of breath, stridor, wheezing. Gastrointestinal: Denies: abdominal pain, constipation, nausea, vomiting. Genitourinary: Reports: no symptoms. Neurological/Psychological: Reports: no symptoms. Objective Last 24 Hrs of Vital Signs/I&O Vital Signs Date Time Temp Pulse Resp B/P B/P Pulse O2 O2 Flow FiO2 Mean Ox Delivery Rate 12/25 0000 92 Room Air 12/25 0000 98.2 60 16 120/60 93 Room Air Room Air 12/24 2032 61 18 120/60 12/24 1600 98.0 56 20 146/70 92 Room Air 12/24 1126 54 142/64 Intake & Output 12/25 1600 12/25 0800 0808 0000 Intake Total 300 240 Output Total 700 500 Balance -400 -260 Intake, IV 100 Intake, Oral 200 240 Output, Urine 700 500 Physical Exam General Appearance: Alert, Oriented X3, Cooperative Skin: No Rashes Skin Temp/Moisture Exam: Warm/Dry Sepsis Skin Exam (color): Normal for Ethnicity HEENT: Atraumatic, PERRLA, EOMI Neck: Supple Cardiovascular: Normal S1, Normal S2 Lungs: Clear to Auscultation Abdomen: Normal Bowel Sounds, Soft, cholecystostomy tube on right side. Neurological: Normal Speech, Normal Tone Extremities: No Edema Assessment/Plan Assessment: 86 year old woman w/ a PMHx of dementia, HTN, HLD, CKD stage III, s/p left masectomy remotely likely 2007 however unknown of surgical type/chemo/radiation, recent admission to 12/06-12/10 for the management of acute kidney injury and urinary tract infection and was discharged to [facility] who was brought to the ER w/ a chief concern of abdominal discomfort and fever likey secondary to acute cholecystitis from cholelithiasis. Following the patient for acute cholecystitis. Acute cholecystitis s/p cholecystostomy tube: -Due to cholelithiasis induced. Patient is meeting SIRS criteria as she is afebrile without tachycardia although she is on beta blockers. -Discontinued unasyn and changed to po augmentin 875mg bid. -Day 2 after cholecystostomy tube placement. 210ml draining in bag. -Her diet has been advanced to low-fat diet. -Follow up bile culture report. -Spoke to IR, Per IR patient needs cholecystostomy tube for at least 4 weeks, they will to percutaneous studies and decide accordingly. Patient needs to follow IR after the discharge. -Patient can get interval cholecystectomy after she is stabilized and if she is fit for surgery. Bacteremia: -Patient has gram-negative rods and enterococcus in blood. -Changed to augmnetin. -We will follow final blood cultures. -Her WBC count is 5.8 today. Sinus bradycardia: -Patient had sinus bradycardia last night possibly due to increased vagal tone after GI procedure or precepitated beta gurpreet and she was transferred to telemetry for close monitoring for any blocks or ischemia. -TSH was 1.26 -Echo didn't show any structural abnormality but patienbt was still in low 50s so monitoring her on tele. -Keep holding her AV tabitha blocking meds. -Follow up cardiology recommendations. 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 -There is a 2.4 cm cyst in the lower pole the right kidney without convincing suspicious features. -Radiology recommended sonographic surveillance. Patient will follow GI or primary care physician as outpatient. History of hypertension hyperlipidemia: -Continue her losartan and amlodipine -Holding her atenolol due to sinus bradycardia. -Continue her lipid-lowering medications. History of dementia: -Not on any medications. History of chronic kidney disease: -Patient has stage III chronic kidney disease. -GFR and creatinine is at baseline. Today her creatinine is 1.0 and BUN is 19 -We will keep monitoring her creatinine BUN. DVT prophylaxis: Mechanical and subcutaneous heparin CODE STATUS: DNI/DNR Problem List: 1. Bacteremia 2. Acute cholecystitis Pain Ratin Pain Location: none Pain Goal: Remain pain free Pain Plan: pain pathway Tomorrow's Labs & Rationales: cbc/icu bundle Wallace MOORE,Preethi 12/25/17 1133: Attending MD Review Statement Attending Statement Attending MD Statement: examined this patient, discuss w/resident/PA/TESTS SUPERINTENDENT, agreed w/resident/PA/TESTS SUPERINTENDENT, discussed with family, reviewed EMR data (avail), discussed with nursing, reviewed images, amended to note Attending Assessment/Plan: Patient seen and examined, overall doing much better. Denies any pain. Patient able to tolerate her diet. Patient remained afebrile and her leukocytosis has resolved. Vital Signs Date Time Temp Pulse Resp B/P B/P Pulse O2 O2 Flow FiO2 Mean Ox Delivery Rate 12/25 1028 Nasal 2.0L Cannula 12/25 0850 68 120/58 12/25 0845 68 120/58 12/25 0800 99.8 64 20 130/70 94 Room Air 12/25 0000 92 Room Air 12/25 0000 98.2 60 16 120/60 93 Room Air Room Air 12/24 2032 61 18 120/60 12/24 1600 98.0 56 20 146/70 92 Room Air on exam; aox3, nad. cv; s1, s2, rrr, disha 50s to 60s resp; clear abd; soft, nt, bs+, + cholecyctostomy tube. ext; no edema Laboratory Tests 12/25 0415 Chemistry Sodium (137 - 145 mmol/L) 140 Potassium (3.5 - 5.1 mmol/L) 3.5 Chloride (98 - 107 mmol/L) 114 H Carbon Dioxide (22 - 30 mmol/L) 20 L Anion Gap (5 - 16) 6 BUN (7 - 17 mg/dL) 19 H Creatinine (0.5 - 1.0 mg/dL) 1.0 Estimated GFR (>60 ml/min) 53 L Glucose (65 - 99 mg/dL) 81 Calcium (8.4 - 10.2 mg/dL) 7.6 L Phosphorus (2.5 - 4.5 mg/dL) 2.9 Magnesium (1.6 - 2.3 mg/dL) 2.0 Total Bilirubin (0.2 - 1.3 mg/dL) 0.2 AST (14 - 36 U/L) 14 ALT (9 - 52 U/L) 22 Albumin (3.5 - 5.0 g/dL) 2.0 L Hematology CBC w Diff NO MAN DIFF REQ WBC (4.8 - 10.8 /CUMM) 5.8 RBC (4.20 - 5.40 /CUMM) 3.18 L Hgb (12.0 - 16.0 G/DL) 9.6 L Hct (37 - 47 %) 28.7 L MCV (81.0 - 99.0 FL) 90.3 MCH (27.0 - 31.0 PG) 30.2 MCHC (33.0 - 37.0 G/DL) 33.5 RDW (11.5 - 14.5 %) 14.2 Plt Count (130 - 400 /CUMM) 228 MPV (7.4 - 10.4 FL) 10.9 H Gran % (42.2 - 75.2 %) 61.4 Lymphocytes % (20.5 - 51.1 %) 26.5 Monocytes % (1.7 - 9.3 %) 6.0 Eosinophils % (0 - 5 %) 3.3 Basophils % (0.0 - 2.0 %) 2.8 H Absolute Granulocytes (1.4 - 6.5 /CUMM) 3.6 Absolute Lymphocytes (1.2 - 3.4 /CUMM) 1.5 Absolute Monocytes (0.10 - 0.60 /CUMM) 0.3 Absolute Eosinophils (0.0 - 0.7 /CUMM) 0.2 Absolute Basophils (0.0 - 0.2 /CUMM) 0.2 A/P: 86 y/o F with pmh sig dementia, HTN, HLD, s/p left masectomy remotely, CKD stage 3. admitted with abd pain, acute cholecystitis s/p cholecystostomy tube placement by IR yesterday. Transferred to ICU as tele hold with bradycardia and found to have sinus bradycardia. Heart rate remained stable in 50s-60s range. Patient remains off of Tylenol. Seen by cardiology today and they want to keep her on telemetry for now. At this point we can switch her to oral antibiotics which is oral Augmentin. Diet has been advanced to low-fat diet. Please check with interventional radiology about further care for this cholecystostomy tube and how long this is he to stay in. She still draining between 150-210 cc of fluid. She is currently pain- free. Agree with repleting potassium. She is on heparin subcu for DVT prophylaxis. Please order PT evaluation if not done already. D/W patient's niece at bedside.
[2017-12-25 08:00] VITALS: BP 130/70
[2017-12-25 08:45] VITALS: BP 120/58
--- NOTE | 2017-12-25 08:46 | ECHOCARDIOGRAM REPORT ---
NAIF BOWERS Age: 86 : 1930 Gender: F Exam Date: 12/24/2017 17:20 Exam Location: [facility] Ht (in): 60 Wt (lb): 153 BSA: 1.74 BP: 142 / 64 Ordering Physician: Oscar Vicente MD Referring Physician: Erick Gomez MD Technologist: Carmen Wu JUAN Room Number: 112 Indications: Structural Heart Disease Rhythm: Technical Quality: FINDINGS Left Ventricle Normal size left ventricle. No obvious regional wall motion abnormalities. Normal left ventricular ejection fraction visually estimated at 60-65%. Left ventricular wall thickness moderately increased. Abnormal relaxation filling pattern of the left ventricle for age (stage 1 diastolic dysfunction). Right Ventricle Right ventricle not well visualized, grossly normal. Normal right ventricular global systolic function. Right Atrium Right atrium not well visualized, grossly normal. Left Atrium Mild left atrial dilatation. Mitral Valve Mild mitral annular calcification. Mild thickening/calcification of the anterior mitral valve leaflet. Mild thickening/calcification of the posterior mitral valve leaflet. Mild mitral regurgitation. No mitral stenosis. Aortic Valve Trileaflet aortic valve. Ttrace aortic regurgitation. No aortic stenosis. Tricuspid Valve Mild tricuspid regurgitation. Right ventricular systolic pressure estimated to be at the upper limits of normal at 37 mmHg. Pulmonic Valve Pulmonic valve not well visualized, grossly normal. Mild pulmonic regurgitation. Pericardium Minimal pericardial effusion (normal variant). Great Vessels Normal size aortic root and proximal ascending aorta. CONCLUSIONS Normal size left ventricle. No obvious regional wall motion abnormalities. Normal left ventricular ejection fraction visually estimated at 60-65%. Left ventricular wall thickness moderately increased. Abnormal relaxation filling pattern of the left ventricle for age (stage 1 diastolic dysfunction). Mild left atrial dilatation. Mild mitral annular calcification. Mild thickening/calcification of the anterior mitral valve leaflet. Mild thickening/calcification of the posterior mitral valve leaflet. Mild mitral regurgitation. No mitral stenosis. Right ventricular systolic pressure estimated to be at the upper limits of normal at [address] Erick Gomez (Electronically Signed) Final Date: 25 December 2017 08:43 MEASUREMENTS (Male / Female) Normal Values 2D ECHO LV Diastolic Diameter PLAX 4.3 cm 4.2 - 5.9 / 3.9 - 5.3 cm LV Systolic Diameter PLAX 2.1 cm 2.1 - 4.0 cm LV Fractional Shortening PLAX 51.2 % 25 - 46 % LV Ejection Fraction 2D Teich 82.7 % IVS Diastolic Thickness 1.4 cm LVPW Diastolic Thickness 1.4 cm LV Relative Wall Thickness 0.7 RV Internal Dim ED PLAX 2.8 cm 1.9 - 3.8 cm LVOT Diameter 1.8 cm Aortic Root Diameter 2.6 cm LA Systolic Diameter LX 4.3 cm 3.0 - 4.0 / 2.7 - 3.8 cm LA Volume 37.0 cm 18 - 58 / 22 - 52 cm Ascending Aorta Diameter 3.5 cm DOPPLER AV Peak Velocity 182.0 cm/s AV Peak Gradient 13.2 mmHg AV Mean Velocity 112.0 cm/s AV Mean Gradient 6.0 mmHg AV Velocity Time Integral 39.3 cm LVOT Peak Velocity 128.0 cm/s LVOT Peak Gradient 6.6 mmHg LVOT Mean Velocity 83.3 cm/s LVOT Mean Gradient 3.0 mmHg LVOT Velocity Time Integral 28.1 cm LVOT Stroke Volume 71.5 cm AV Area Cont Eq vti 1.8 cm AV Area Cont Eq pk 1.8 cm MV Peak Velocity 106.0 cm/s MV Peak Gradient 4.5 mmHg MV Mean Velocity 59.5 cm/s MV Mean Gradient 2.0 mmHg Mitral E Point Velocity 73.5 cm/s Mitral A Point Velocity 90.8 cm/s Mitral E to A Ratio 0.8 MV PHT Velocity 95.6 cm/s MV Deceleration [place] 332.0 cm/s MV Pressure Half Time 86.4 ms MV Area PHT 2.5 cm MV Deceleration Time 235.0 ms TR Peak Velocity 300.0 cm/s TR Peak Gradient 36.0 mmHg Right Atrial Pressure 5.0 mmHg Pulmonary Artery Systolic Pressure 41.0 mmHg Right Ventricular Systolic Pressure 41.0 mmHg PV Peak Velocity 105.0 cm/s PV Peak Gradient 4.4 mmHg PV Mean Velocity 78.6 cm/s PV Mean Gradient 3.0 mmHg PV Velocity Time Integral 28.8 cm LV E' Lateral Velocity 8.5 cm/s Mitral E to LV E' Lateral Ratio 8.7 LV E' Septal Velocity 5.5 cm/s Mitral E to LV E' Septal Ratio 13.5
--- NOTE | 2017-12-25 10:27 | PN- Cardiology ---
Subjective Subjective: Patient seen at bedside. Denies chest pain, palpitations, dyspnea, orthopnea. Objective Vital Signs and I&Os Vital Signs Date Time Temp Pulse Resp B/P B/P Pulse O2 O2 Flow FiO2 Mean Ox Delivery Rate 12/25 0850 68 120/58 12/25 0845 68 120/58 12/25 0800 99.8 64 20 130/70 94 Room Air 12/25 0000 92 Room Air 12/25 0000 98.2 60 16 120/60 93 Room Air Room Air 12/24 2032 61 18 120/60 12/24 1600 98.0 56 20 146/70 92 Room Air 12/24 1126 54 142/64 Intake & Output 12/25 1600 12/25 0812/25 0000 12/24 1600 12/24 0812/24 0000 Intake Total 248 729 0438 920 400 Output Total 150 700 500 610 600 150 Balance -150 -400 -260 390 320 250 Intake, IV 100 750 800 400 Intake, Oral 200 240 240 120 Intake, Other 10 Number 0 Bowel Movements Output, 150 60 150 150 Drainage Output, Urine 700 500 550 450 Patient 68.946 kg Weight Physical Exam: General: Elderly lady, lying in bed no apparent distress HEENT: NCAT, NO JVD, no carotid bruit Heart: s1s2, regular rhythm, mildly bradycardic, no MRG Lungs: CTA b/l Abd: soft, nt Ext: no peripheral edema Current Medications: Current Medications Sig/Zoie Start time Last Medication Dose Route Stop Time Status Admin Acetaminophen 650 MG Q4P PRN 12/23 1630 AC PO Acetaminophen 1,000 MG Q6P PRN 12/22 2014 AC 12/23 N/A 1 UNIT IV 2054 Amlodipine Besylate 5 MG QPM /05 2100 AC 12/24 PO 2032 Ampicillin Sodium/ 1,500 MG Q12H 12/22 2330 AC 12/25 Sulbactam Sodium IV 0001 Sodium Chloride 100 ML Atorvastatin Calcium 10 MG 1700 12/24 1700 AC 12/24 PO 1624 Dextrose/Sodium 1,000 ML .Q10H 12/22 2014 DC 12/24 [place] 0850 Heparin Sodium 5,000 UNIT Q8 / 2200 AC 12/25 (Porcine) SC 0537 Losartan Potassium 50 MG DAILY 12/23 09 AC 12/25 PO 0850 Morphine Sulfate 2 MG Q4P PRN 12/23 1645 AC 12/23 IV 1841 Ondansetron HCl 4 MG Q6-PRN PRN 12/22 2014 AC IV Potassium Chloride 0 .STK-MED ONE 12/25 0551 DC PO Potassium Chloride 40 MEQ ONCE ONE 12/25 0545 DC 12/25 PO 12/25 0546 0551 Potassium Chloride 0 .STK-MED ONE 12/25 0532 DC PO Potassium Chloride 40 MEQ ONCE ONE 12/25 0530 DC PO 12/25 0531 Results Last 48 Hrs of Labs/Mics: Laboratory Tests 12/25/17 0415: Anion Gap 6, Estimated GFR 53 L, Glucose 81, Calcium 7.6 L, Phosphorus 2.9, Magnesium 2.0, Total Bilirubin 0.2, AST 14, ALT 22, Albumin 2.0 L, CBC w Diff NO MAN DIFF REQ, RBC 3.18 L, MCV 90.3, MCH 30.2, MCHC 33.5, RDW 14.2, MPV 10.9 H, Gran % 61.4, Lymphocytes % 26.5, Monocytes % 6.0, Eosinophils % 3.3, Basophils % 2.8 H, Absolute Granulocytes 3.6, Absolute Lymphocytes 1.5, Absolute Monocytes 0.3, Absolute Eosinophils 0.2, Absolute Basophils 0.2 12/24/17 0750: Anion Gap 7, Estimated GFR 43 L, BUN/Creatinine Ratio 20.8, Calcium 8.3 L, Magnesium 2.3, Total Bilirubin 0.2, Direct Bilirubin 0.2, AST 12 L, ALT 24, Alkaline Phosphatase 75, Total Protein 5.2 L, Albumin 2.3 L, TSH 1.260, CBC w Diff NO MAN DIFF REQ, RBC 3.30 L, MCV 91.2, MCH 30.3, MCHC 33.2, RDW 14.3, MPV 12.2 H, Gran % 74.5, Lymphocytes % 16.9 L, Monocytes % 6.1, Eosinophils % 1.3, Basophils % 1.2, Absolute Granulocytes 5.4, Absolute Lymphocytes 1.2, Absolute Monocytes 0.4, Absolute Eosinophils 0.1, Absolute Basophils 0.1 12/24/17 0600: Calcium Cancelled, Magnesium Cancelled, TSH Cancelled Recent Imaging Studies: TTE 12/24/2017: Normal size left ventricle. No obvious regional wall motion abnormalities. Normal left ventricular ejection fraction visually estimated at 60-65%. Left ventricular wall thickness moderately increased. Abnormal relaxation filling pattern of the left ventricle for age (stage 1 diastolic dysfunction). Mild left atrial dilatation. Mild mitral annular calcification. Mild thickening/calcification of the anterior mitral valve leaflet. Mild thickening/calcification of the posterior mitral valve leaflet. Mild mitral regurgitation. No mitral stenosis. Right ventricular systolic pressure estimated to be at the upper limits of normal at 37 mmHg. telemetry personally reviewed: Sinus bradycardia Assessment/Plan Assessment/Plan 1. sinus bradycardia 2. Hypertension 3. Hyper lipidemia 4. Acute cholecystitis status post cholecystostomy 5. Dementia 6. EPI on CKD Patient remains in sinus bradycardia in the 50s bpm. Patient is asymptomatic. TTE as above with normal LV systolic function. Would continue to hold all AV tabitha blockers including beta blockers and diltiazem, ensure electrolytes are within normal limits, and continue telemetry. Continue telemetry? Yes
--- NOTE | 2017-12-25 15:34 | Transfer of Care Summary ---
Hospital Course Course Hospital Course: 86 year old woman w/ a PMHx of dementia, HTN, HLD, CKD stage III, s/p left masectomy remotely likely 2007 however unknown of surgical type/chemo/radiation, recent admission to 12/06-12/10 for the management of acute kidney injury and urinary tract infection and was discharged to [facility] who was brought to the ER w/ a chief concern of abdominal discomfort and fever likey secondary to acute cholecystitis from cholelithiasis. Patient was transfered to icu as tele hold because of her sinus bradycardia after her cholecystostomy tube was placed by IR procedure. Acute cholecystitis s/p cholecystostomy tube: Patient didn't meet SIRS criteria and she remained afebrile. Patient was not fit for surgery for cholecystectomy so cholecystostomy tube was placed. Patient was started on Unasyn to cover enterococci and gram-negative rods. Patient received Unasyn for 3 days and later on changed to Augmentin 875 twice a day. Her drain output was 210ML this morning. Spoke to IR about her cholecystostomy plan, they recommended to keep the tube for 4 weeks at least. They will do percutaneous study and decide accordingly to move keep it for longer time. Patient needs to follow IR as outpatient. We need to talk to surgery if they have any plan for interval cholecystectomy. Bacteremia: Patient had bacteremia due to gram-negative rods and enterococci. Patient didn' t develop any signs of cholangitis during her stay in ICU. She received Unasyn and changed to Augmentin 875 twice a day. Patient remained afebrile during her stay in ICU and her WBC count was 5.8 this morning. Sinus bradycardia: Patient had sinus bradycardia that's why she was transferred telemetry monitoring to rule out any blocks or ischemic cardiac injury. Possibly due to increased Aldactone after GI procedure patient had sinus bradycardia. She was also on atenolol that was discontinued. Any medication that blocks AV node was discontinued. Echocardiogram remained negative for any structural cardiac disease. Her TSH remained normal. Cardiology wants to monitor patient on telemetry floor. 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 There is a 2.4 cm cyst in the lower pole the right kidney. Radiology recommended sonographic surveillance. Patient will follow GI or primary care physician as outpatient. History of hypertension hyperlipidemia: Continued her losartan and amlodipine. Her atenolol was discontinued. Lipitor was continued. History of chronic kidney disease: Patient has stage III chronic kidney disease. GFR and creatinine is at baseline. Today her creatinine is 1.0 and BUN is 19 History of dementia: Not on any medication DVT prophylaxis: Mechanical and subcutaneous heparin CODE STATUS: DNI/DNR Significant Procedures: EXAM TYPE: US - US-GUIDANCE CLINICAL HISTORY: 86-year-old female with imaging and physical examination findings consistent with acute cholecystitis. The patient is a poor surgical candidate and therefore request was made for cholecystostomy tube placement. PROCEDURES: 1. Limited sonogram of the right upper abdominal quadrant. 2. Placement of an 8.5 Fr locking all-purpose drainage catheter into the gallbladder. PHYSICIAN: Wilmar Chavez M.D. MONITORING: The procedure was performed with conscious sedation and analgesia under my direct supervision. Continuous blood pressure, pulse oximetry as well as heartrate monitoring was performed by an independent registered nurse. Physician intraservice sedation time was 10 minutes. MEDICATIONS: 1. 0.5 mg of Versed and 25 micrograms of fentanyl were administered. 2. 8 mL of 1% lidocaine SQ. COMPLICATIONS: [<None>] ESTIMATED BLOOD LOSS: < 5 mL SPECIMENS: Culture CONTRAST: None required PROCEDURE DETAILS: Informed consent was obtained from the patient's son prior to the procedure. During this process, the procedure and potential alternatives were explained along with the intended outcome and benefits. The risks of the procedure, including the possibility of an unsuccessful procedure, as well as the risk of not doing the procedure, were discussed. The patient's son was given the opportunity to ask questions regarding the procedure. A consent form documenting this discussion was placed in the medical record. The patient was brought to the procedure room and placed supine on the fluoroscopy table. A time out was performed. Prior to prepping the patient, a limited sonogram of the right upper quadrant was performed to localize the gallbladder and chose an appropriate access. The right upper abdomen was prepped and draped in usual sterile fashion. The skin and subcutaneous tissues were anesthetized with Lidocaine. Under direct ultrasound guidance, an 8.5 Frisian Dawkins-Wadsworth catheter was advanced trocar style via a transhepatic route into the gallbladder. Once the tip was within the gallbladder lumen, the metal trocar was stabilized and the plastic catheter advanced further into the gallbladder. The metal trocar was removed and the distal pigtail was formed and locked into place. The drain was sutured to skin with 2-0 silk suture. A StatLock and sterile dressing were placed. Bile sample sent for culture. FINDINGS: 1. Mildly distended gallbladder with gallbladder wall thickening and gallstones. Pericholecystic fluid and edema within the gallbladder wall were also noted. 2. Aspiration of thin brown fluid. 3. Placement of 8.5 Frisian pigtail catheter. IMPRESSION: Successful placement of an 8.5 Fr cholecystostomy catheter. PLAN: -The patient was stable after the procedure and was transferred back to the floor with verbal and written instructions. -The tube should be open to external gravity drainage via drainage bag. -The tube should be flushed twice daily with 10 mL normal saline. -The drain needs to remain in place for at least 6 weeks to give time for the tract to mature. Assessment/Plan: Acute cholecystitis s/p cholecystostomy tube: -Due to cholelithiasis induced. Patient is meeting SIRS criteria as she is afebrile without tachycardia although she is on beta blockers. -Discontinued unasyn and changed to po augmentin 875mg bid. -Day 2 after cholecystostomy tube placement. 210ml draining in bag. -Her diet has been advanced to low-fat diet. -Follow up bile culture report. -Spoke to IR, Per IR patient needs cholecystostomy tube for at least 4 weeks, they will to percutaneous studies and decide accordingly. Patient needs to follow IR after the discharge. -Patient can get interval cholecystectomy after she is stabilized and if she is fit for surgery. Bacteremia: -Patient has gram-negative rods and enterococcus in blood. -Changed to augmnetin. -We will follow final blood cultures. -Her WBC count is 5.8 today. Sinus bradycardia: -Patient had sinus bradycardia last night possibly due to increased vagal tone after GI procedure or precepitated beta gurpreet and she was transferred to telemetry for close monitoring for any blocks or ischemia. -TSH was 1.26 -Echo didn't show any structural abnormality but patienbt was still in low 50s so monitoring her on tele. -Keep holding her AV tabitha blocking meds. -Follow up cardiology recommendations. 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 -There is a 2.4 cm cyst in the lower pole the right kidney without convincing suspicious features. -Radiology recommended sonographic surveillance. Patient will follow GI or primary care physician as outpatient. History of hypertension hyperlipidemia: -Continue her losartan and amlodipine -Holding her atenolol due to sinus bradycardia. -Continue her lipid-lowering medications. History of dementia: -Not on any medications. History of chronic kidney disease: -Patient has stage III chronic kidney disease. -GFR and creatinine is at baseline. Today her creatinine is 1.0 and BUN is 19 -We will keep monitoring her creatinine BUN. DVT prophylaxis: Mechanical and subcutaneous heparin CODE STATUS: DNI/DNR
[2017-12-25 19:00] VITALS: BP 128/60
[2017-12-25 21:52] VITALS: BP 104/68
[2017-12-26 06:54] VITALS: BP 126/72
[2017-12-26 08:12] LABS: ABSOLUTE BASOPHIL COUNT 0 /CUMM (0.0-0.2); ABSOLUTE EOSINOPHIL COUNT 0.2 /CUMM (0.0-0.7); ABSOLUTE GRANULOCYTE CT 2.3 /CUMM (1.4-6.5); ABSOLUTE LYMPH COUNT 1.2 /CUMM (1.2-3.4); ABSOLUTE MONOCYTE COUNT 0.3 /CUMM (0.10-0.60); BASOPHIL % 0.7 % (0.0-2.0); GRANULOCYTE % 57.3 % (42.2-75.2); HEMATOCRIT 28.3 % (37-47); MEAN CORPUSCULAR HGB 30.4 PG (27.0-31.0); MEAN CORPUSCULAR HGB CONC 33.7 G/DL (33.0-37.0); MEAN CORPUSCULAR VOLUME 90.3 FL (81.0-99.0); MEAN PLATELET VOLUME 10.7 FL (7.4-10.4); PLATELET COUNT 251 /CUMM (130-400); RBC DISTRIBUTION WIDTH 14.4 % (11.5-14.5); RED BLOOD CELL CT 3.13 /CUMM (4.20-5.40); WHITE BLOOD CELL COUNT 4.1 /CUMM (4.8-10.8)
--- NOTE | 2017-12-26 10:19 | Patient Discharge Instructions ---
Discharge Instructions General Discharge Information You were seen/treated for: You are diagnosed as having acute cholecystitis I needed, cholecystostomy tube. Special Instructions: These follow-up with your primary care provider within a week of discharge. Please follow-up with the interventional radiology for further evaluation and management of cholecystostomy tube within a 4-6 weeks of discharge at [facility]. Please follow-up with general surgery Dr. Love for further evaluation and management of cholecystitis and cholecystostomy. You had episodes of bradycardia so we stopped her atenolol. Diet Recommended Diet: Heart Healthy Acute Coronary Syndrome Inclusion Criteria At DC or during hospital stay patient has or had the following: ACS DIAGNOSIS No Discharge Core Measures Meds if any: Prescribed or Continued at Discharge Meds if any: NOT Prescribed or Continued at Discharge Congestive Heart Failure Inclusion Criteria At DC or during hospital stay patient has or had the following: CHF DIAGNOSIS No Discharge Core Measures Meds if any: Prescribed or Continued at Discharge Meds if any: NOT Prescribed or Continued at Discharge Cerebrovascular accident Inclusion Criteria At DC or during hospital stay patient has or had the following: CVA/TIA Diagnosis No Discharge Core Measures Meds if any: Prescribed or Continued at Discharge Meds if any: NOT Prescribed or Continued at Discharge Venous thromboembolism Inclusion Criteria VTE Diagnosis No VTE Type NONE VTE Confirmed by (Test) NONE Discharge Core Measures - Per Current guidelines, there needs to be overlap - treatment for the first 5 days of Warfarin therapy. - If discharged on Warfarin prior to 5 days of - overlap therapy, the patient will need to be - assessed for post discharge needs including - *Post discharge parental anticoagulation - *Warfarin and/or parental anticoagulation education - *Follow up date to check INR post discharge At least 5 days overlap therapy as Inpatient No Meds if any: Prescribed or Continued at Discharge Note: Overlap Therapy is Warfarin and Anticoagulant Meds if any: NOT Prescribed or Continued at Discharge
[2017-12-26] MEDS ORDERED: AMOX-CLAV 875-1 EACH PO (10:55)
--- NOTE | 2017-12-26 12:39 | PN- Att Addend ---
Attending Addendum Attending Brief Note 86F PMH dementia, HTN, HLD, CKD stage 3 admitted with acute cholecystitis s/p cholecystostomy tube placement by IR on 12/24, transferred to medical service as patient became asymptomatically bradycardic to high 30's post-procedure and now monitored on telemetry. Patient has no complaints today. She is pain free and denies chest pain, SOB, palpitations, lightheadedness. Abdominal drain with 150 mL of brown liquid. Afebrile, stable vitals, HR sinus and in 50-70, normal BP. 1. Acute cholecystitis s/p cholecystostomy 2. Sinus bradycardia Plan - Continue on telemetry - Follow cardiology recommendations - Continue to hold AV-tabitha blocking agents - Outpatient IR, surgery, cardiology follow up - PT eval - Continue home medications - DVT PPx - Potential discharge later today or tomorrow morning
[2017-12-26 14:00] VITALS: BP 130/60
--- NOTE | 2017-12-26 14:40 | Discharge Summary ---
Visit Information Visit Dates Admission Date: 12/22/17 Discharge Date: 12/26/2017 Hospital Course Course Attending Physician: Giorgio Moore MD Primary Care Physician: Vianney MOORE,Raul Chung Hospital Course: Ms Gannon is an 86 year old woman with PMHx of dementia, HTN, HLD, s/p left masectomy remotely likely 2007 however unknown of surgical type/chemo/radiation, recent admission to 12/06-12/10 for the management of acute kidney injury and urinary tract infection and was discharged to [facility] who was brought to the ER with chief concern of abdominal discomfort and fever. Acute cholecystitis status post cholecystectomy (placement of an 8.5 Fr cholecystostomy catheter) is on 12/23/2017 At the time of admission to surgical service, she was found to be febrile Tmax 100.8, pulse rate 65, respiration at 20, blood pressure 139/64, and having leukocytosis WBC-17, with 87.4 granulocytes, abnormal renal function (BUN 34, creatinine 1.6), abdominal ultrasound revealed gallbladder wall thickening and tenderness in the area of the gallbladder upon sonography is concerning for acute cholecystitis, with normal liver chemistries. Blood cultures revealed growth of gram-negative rods. Given her dementia, decreased by mouth intake, the decision was made by the surgical team to place an IR guided for perc-sharon tube instead of laparoscopic cholecystectomy. She underwent percutaneous cholecystostomy, and placement of an 8.5 Fr cholecystostomy catheter on 2017. Medical team was consulted, for comanagement. Patient was transfered to icu as tele hold because of her sinus bradycardia after her cholecystostomy tube was placed by IR procedure. She was given IV Unasyn for infection, which was changed to Augmentin 875 mg twice daily for total 10 days of antibiotic.Patient remained afebrile during her stay in ICU. We discharged her on tablet Augmentin and advised to follow-up with Dr. Love within the 2 weeks of discharge for further evaluation and management of cholecystitis. He also advised to follow- up with interventional radiologist at the [facility] within 4-6 weeks of discharge for further evaluation and management of cholecystostomy tube. Sinus bradycardia - Patient had sinus bradycardia that's why she was transferred telemetry monitoring to rule out any blocks or ischemic cardiac injury. Possibly due to increased Aldactone after GI procedure patient had sinus bradycardia. She was also on atenolol that was discontinued. Any medication that blocks AV node was discontinued. Echocardiogram remained negative for any structural cardiac disease. Her TSH remained normal. We monitored patient on telemetry floor. Telemetry monitoring was negative for any acute arrhythmia or heart block. We discharged patient, off beta-gurpreet. Advised to follow-up with cotton ginner helper within a week of discharge. 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 There is a 2.4 cm cyst in the lower pole the right kidney. Radiology recommended sonographic surveillance. Patient will follow GI or primary care physician as outpatient. Chronic medical condition-history of hypertension hyperlipidemia, Dementia Continued her losartan and amlodipine. Her atenolol was discontinued. Lipitor was continued. Allergies: Coded Allergies: No Known Allergies (12/06/17) Disposition Summary Disposition Principal Diagnosis: Acute cholecystitis status post cholecystectomy (placement of an 8.5 Fr cholecystostomy catheter) is on 12/23/2017 Sinus bradycardia, atenolol was stopped Additional Diagnosis: Stage III chronic kidney disease History of dementia History of hypertension History of hyperlipidemia Discharge Disposition: SNF Discharge Instructions General Discharge Information Code Status: Do Not Intubate Patient's Diet: Low-fat diet heart healthy diet Patient's Activity: As tolerated Follow-Up Instructions/Appts: Please follow-up with your primary care provider within a week of discharge Please follow-up with general surgery Dr. Love further evaluation and management of cholecystitis and cholecystectomy. She may need to follow interventional radiology for further evaluation and management of cholecystostomy to within 4-6 weeks of discharge at the [facility]. We stopped tablet atenolol because of the bradycardia. Medications at Discharge Discharge Medications: Stop taking the following medications: Atenolol (Atenolol) 25 MG TABLET ORAL DAILY Continue taking these medications: Lovastatin (Lovastatin) 40 MG TABLET 2 Tablet ORAL DAILY Instructions: with food Comments: LIPITOR GIVEN Last Taken: 12/26/17 Time: 1615 PM Tramadol HCl (Tramadol HCl) 50 MG TABLET 1 Tablet ORAL DAILY NEEDED as needed for PAIN Comments: NOT GIVEN Cholecalciferol (Vitamin D3) (Vitamin D-3) 2,000 UNIT CAPSULE 1 Capsule ORAL DAILY Losartan Potassium (Cozaar) 50 MG TABLET 1 Tablet ORAL DAILY Comments: Last Taken: 12/26/2017 Time: 08:24 AM Amlodipine Besylate (Amlodipine Besylate) 5 MG TABLET 1 Tablet ORAL Every night Comments: Last Taken: 12/25/17 Time: 21:10 PM Dronabinol (Marinol) 2.5 MG CAPSULE 1 Capsule ORAL TAKE AT BEDTIME Lactose-Reduced Food (Nutritional Shake) 237 ML LIQUID 120 Milliliters ORAL THREE TIMES DAILY Acetaminophen (Acetaminophen) 325 MG TABLET 2 Tablet ORAL Q4H as needed for PAIN/TEMP>101 Bisacodyl (Dulcolax) 10 MG SUPP.RECT 1 Suppository RECTAL As Directed as needed for CONSTIPATION Na Phos,M-B/Na Phos,Di-Ba (Fleet Enema) 19 GRAM-7 GRAM/118 ML ENEMA 1 Enema RECTAL As Directed as needed for CONSTIPATION Magnesium Hydroxide (Milk Of Magnesia) 400 MG/5 ML ORAL.SUSP 30 Milliliters ORAL As Directed as needed for CONSTIPATION Start taking the following new medications: Amoxicillin/Clavulanate Potass (Amox-Clav 875-125 MG Tablet) 875 MG-125 MG TABLET 875 Milligram ORAL EVERY 12 HOURS Qty = 13 No Refills Comments: Last Taken: 12/26/17 Time: 08:24 AM Copies To: Vianney MOORE,Raul aCntor MD Review Statement Documenting Attending: Giorgio Moore MD
--- NOTE | 2017-12-26 14:45 | PN- Housestaff ---
Subjective Follow-up For: Bradycardia, cholecystitis treated with cholecystostomy Complaints: no complaints Tele-Events Since Last Visit: HR - 60, no events overnight Subjective: Patient feels better, and feels ready to get discharged Review of Systems Constitutional: Reports: no symptoms. Cardiovascular: Denies: chest pain, edema, palpitations, syncope. Respiratory: Denies: cough, orthopnea, short of breath. Gastrointestinal: Denies: abdominal pain, bloating, constipation, diarrhea. Genitourinary: Denies: dysuria, frequency, urgency. Objective Last 24 Hrs of Vital Signs/I&O Vital Signs Date Time Temp Pulse Resp B/P B/P Pulse O2 O2 Flow FiO2 Mean Ox Delivery Rate 12/26 1548 98.8 62 18 130/60 12/26 1400 98.8 62 18 130/60 95 Room Air 12/26 0838 Nasal 2.0L Cannula 12/26 0824 98.2 64 18 126/72 12/26 0654 98.2 64 18 126/72 96 Room Air 12/25 2152 99.0 64 18 104/68 93 Room Air 12/25 2110 71 18 158/68 Intake & Output 12/26 1600 12/26 0800 12/26 0000 Intake Total 680 120 Output Total 250 110 400 Balance 430 -110 -280 Intake, Oral 680 120 Number 1 Bowel Movements Output, 110 Drainage Output, Urine 250 400 Physical Exam General Appearance: Alert, Oriented X3, Cooperative, No Acute Distress Cardiovascular: Regular Rate, No Murmurs Lungs: Clear to Auscultation, Normal Air Movement Abdomen: Normal Bowel Sounds, Soft, No Tenderness, No Hepatospenomegaly, No Masses, ABdomen drain percutaneorus cystostomy tube in place , draining 100 ml fluid in green color. Neurological: Normal Speech, Strength at 5/5 X4 Ext, Normal Tone, Sensation Intact Extremities: No Clubbing, No Cyanosis, No Edema, Normal Pulses, No Tenderness/ Swelling Current Medications: Current Medications Sig/Zoie Start time Last Medication Dose Route Stop Time Status Admin Acetaminophen 650 MG Q4P PRN 12/23 1630 DCD PO Acetaminophen 1,000 MG Q6P PRN 12/22 2014 DCD 12/23 N/A 1 UNIT IV 2053 Amlodipine Besylate 5 MG QPM 12/22 2099 DCD 12/25 PO 0 Amoxicillin/ 875 MG Q12 12/25 2099 DCD 12/26 Clavulanate Potassium PO 0824 Atorvastatin Calcium 10 MG 1700 12/24 1700 DCD 08 PO 1558 Heparin Sodium 5,000 UNIT Q8 12/22 2200 DCD 12/26 (Porcine) SC 1342 Losartan Potassium 50 MG DAILY 12/23 0900 DCD 12/26 PO 0824 Morphine Sulfate 2 MG Q4P PRN 12/23 1645 DCD 12/23 IV 1841 Ondansetron HCl 4 MG Q6-PRN PRN 12/22 2014 DCD IV Last 24 Hrs of Lab/Bret Results Last 24 Hrs of Labs/Mics: Laboratory Tests 12/26/17 0630: Anion Gap 8, Estimated GFR 47 L, Glucose 86, Calcium 8.4, Phosphorus 3.2, Magnesium 2.0, Total Bilirubin 0.4, AST 13 L, ALT 25, Albumin 2.4 L, CBC w Diff NO MAN DIFF REQ, RBC 3.13 L, MCV 90.3, MCH 30.4, MCHC 33.7, RDW 14.4, MPV 10.7 H, Gran % 57.3, Lymphocytes % 30.6, Monocytes % 7.4, Eosinophils % 4.0, Basophils % 0.7, Absolute Granulocytes 2.3, Absolute Lymphocytes 1.2, Absolute Monocytes 0.3, Absolute Eosinophils 0.2, Absolute Basophils 0 Assessment/Plan Assessment: 1)Acute cholecystitis s/p cholecystostomy tube: -Due to cholelithiasis induced. -ABX changed to po augmentin 875mg bid. - 110ml draining in bag in the morning -Her diet has been advanced to low-fat diet. - Per IR patient needs cholecystostomy tube for at least 4 weeks, they will to percutaneous studies and decide accordingly. Patient needs to follow IR after the discharge. -Patient can get interval cholecystectomy after she is stabilized and if she is fit for surgery. 2)Bacteremia: -Patient has gram-negative rods and enterococcus in blood. -Changed to augmnetin. -We will follow final blood cultures. 3)Sinus bradycardia: -Atenolol is discontinued. - PAtient bobby not have any further bradycardia - she is doing well , Can be discharged. 4)History of hypertension hyperlipidemia: -Continue her losartan and amlodipine -Holding her atenolol due to sinus bradycardia. -Continue her lipid-lowering medications. 6)History of dementia: -Not on any medications. 7)History of chronic kidney disease: -Patient has stage III chronic kidney disease. -GFR and creatinine is at baseline. Today her creatinine is 1.0 and BUN is 19 -Patient can be discharged Problem List: 1. Cholecystitis Pain Ratin Pain Location: none Pain Goal: Remain pain free (n) Pain Plan: none Tomorrow's Labs & Rationales: none
[2017-12-26 15:48] VITALS: BP 130/60
== END 2017-12-26 16:46 | DRG 445 ==
LOC: ERH 15:11 → ERHI 20:02 → 1NO 20:02 → CRI 20:02 → 2NA 20:02 → CANRESERV 20:08 → ENRESERV 20:08 → ENTRNSPT 22:13 → 2NA 22:35 → CMPTRNSPT 22:57 → 2NA 12-23 11:19 → CRI 12-24 07:16 → ENTRNSPT 12-25 15:05 → EDTRNSPTSTS 12-25 15:16 → 1NO 12-25 15:30 → CMPTRNSPT 12-25 15:43 → ENPENDDIS 12-26 14:10 → 1NO 12-26 16:46
PROVIDERS: Physician Assistant; Physician Assistant Medical; Physician Assistant Surgical; Student in an Organized Health Care Education/Training Program
PROC: 0F9430Z Drainage of Gallbladder with Drainage Device, Percutaneous Approach (ICD-10-PCS; principal; 2017-12-23)
DX: K80.00 Calculus of gallbladder with acute cholecystitis without obstruction (principal); N17.9 Acute kidney failure, unspecified; R78.81 Bacteremia; K86.2 Cyst of pancreas; F03.90 Unspecified dementia, unspecified severity, without behavioral disturbance, psychotic disturbance, mood disturbance, and anxiety; I12.9 Hypertensive chronic kidney disease with stage 1 through stage 4 chronic kidney disease, or unspecified chronic kidney disease; E78.5 Hyperlipidemia, unspecified; R00.1 Bradycardia, unspecified; N18.3 Chronic kidney disease, stage 3 (moderate); B95.2 Enterococcus as the cause of diseases classified elsewhere; N28.1 Cyst of kidney, acquired; T44.7X5A Adverse effect of beta-adrenoreceptor antagonists, initial encounter; B96.20 Unspecified Escherichia coli [E. coli] as the cause of diseases classified elsewhere
CPT/HCPCS: 1NSP; 2NAP; 87075; CCU; 36415; 36592; 82436; 87040; 87147; 93005; 93010; 93306; 96374; 96375; 97116-GO; 97161-GP; 97530-GO; J0131; J1644; J2001; J2405; J7042